=== PATIENT | male | born 1960 | race Caucasian/White ===

== ENCOUNTER → 2017-12-21 09:42 | Outpatient (CLI) | payer OTHER, SELFPAY ==
[2017-12-21 12:36] LABS: AST(SGOT) 26 U/L (15-37); Alanine Aminotransfer ALT/SGPT 53 U/L (16-61); Albumin, Serum 3.7 g/dL (3.2-5.0); Alkaline Phosphatase 107 U/L (45-117); Anion Gap 8 (5-15); BUN 14 mg/dL (7-18); BUN/Creat Ratio 11.3 RATIO (10-20); Calcium,Total 9.1 mg/dL (8.5-10.1); Chloride 102 mmol/L (98-107); Cholesterol 134 mg/dL (200); Creatinine, Serum 1.24 mg/dL (0.70-1.30); EST Glomerular Filtration Rate 64 mL/min (>60); Est Glom Filt Rate - Afr Amer 77 mL/min (>60); Globulin 3.7 g/dL (2.2-4.2); Glucose 168 mg/dL (74-106); High Density Lipoprotein 37 mg/dL; Protein, Total 7.4 g/dL (6.4-8.2); Sodium Level 139 mmol/L (136-145); Thyroid Stim Hormone (TSH) 0.61 uIU/mL (0.358-3.74); Triglycerides 146 mg/dL; Very Low Density Lipoprotein 29 mg/dL (5-40)
== END ==
PROVIDERS: Family Provider Family Medicine; PCP Family Medicine; Visit Provider Family Medicine
DX: E11.9 Type 2 diabetes mellitus without complications (principal)
CPT/HCPCS: 36415; 80053; 80061; 84403; 84443

== ENCOUNTER 2018-05-15 17:05 | Emergency (ER) | payer OTHER, SELFPAY ==
[2018-05-15 17:11] VITALS: BP 154/75; PULSE 80; RESP 16; TEMP 36.3; O2SAT 99; BMI 32.2
--- NOTE | 2018-05-15 17:21 | ED.VISSUMM ---
- ER Visit Summary Date of Service: 05/15/18 Chief Complaint: Foreign body left ring finger History of Present Illness: The patient is a 57 M who was nailing a toy house together when a nail came out of the side of the wood and went through his left ring finger. His last tetanus was about 11 years ago. He has pain in the distal left ring finger where the nail is located. Denies any other symptoms Physical Examination: Left hand exam reveals a nail through the distal finger below the nail bed. It exits on the radial side of the finger. It did contact the middle finger on the ulnar side but there is no injury or bleeding at that area. There is no bleeding overall. Test Results: Left hand x-ray reveals a foreign body near the distal phalanx of the left fourth finger. It does not appear to involve the bone Emergency Department Course and Treatment: The patient had a digital block using lidocaine. I then was able to remove the foreign body using hemostats. He tolerated this well. Minimal bleeding. He will keep area clean and dry. I will put him on Keflex for a couple of days because he is a diabetic. He will follow-up with his PCP. Treatment Plan: [] Disposition: Discharge Impression: Foreign body, left ring finger Foreign body removal by ED physician This note was generated with [employer] dictation software. It may contain incorrect words, spelling, and punctuation that were not noted in review of the chart prior to signing ED Disposition - Plan for ED Patient: Chief Complaint: Foreign Body Referrals: Brody Juárez MD [Primary Care Provider] -
--- NOTE | 2018-05-15 17:30 | RAD_ITS ---
STUDY: X-RAY - LEFT HAND REASON FOR EXAM: Male, 57 years old. Nail in finger. TECHNIQUE: 3 view(s) of the hand. COMPARISON: None. FINDINGS: Bones: There are no acute osseous abnormalities. Joints: The joints are unremarkable. Soft tissues: The soft tissues are unremarkable. Foreign body: There is a 2.3 cm linear radiopaque foreign body projected through the distal phalanx of fourth digit. RAD/Hand Min 3 Views IMPRESSION: Linear foreign body as described. Electronically Signed: Zaki Chakraborty MD at 18:17 EST , Service support ,
--- NOTE | 2018-05-15 17:49 | ED.DEP ---
ED Disposition - Plan for ED Patient: Disposition: Home or Assisted Living Chief Complaint: Foreign Body Instructions: ED Foreign Body Soft Tissue Removed Prescriptions: Cephalexin [Keflex] 500 mg PO Q12 #10 cap Referrals: Brody Juárez MD [Primary Care Provider] -
[2018-05-15] MEDS: Diphth,Pertuss(Acell),Tet Vac 0.5 ML Vial IM (17:57)
[2018-05-15] MEDS: Cephalexin 250 MG Capsule 500 MG PO (18:05)
== END 2018-05-15 18:28 | disposition home or self-care (01) ==
PROVIDERS: Emergency Provider Emergency Medicine; Family Provider Family Medicine; PCP Family Medicine
DX: S61.245A Puncture wound with foreign body of left ring finger without damage to nail, initial encounter (principal); W45.0XXA Nail entering through skin, initial encounter; Y93.89 Activity, other specified; Y92.9 Unspecified place or not applicable; I10 Essential (primary) hypertension; E11.9 Type 2 diabetes mellitus without complications; Z72.0 Tobacco use; Z79.84 Long term (current) use of oral hypoglycemic drugs; Z79.899 Other long term (current) drug therapy
CPT/HCPCS: 73130; 90471; 90715; 99284

== ENCOUNTER → 2018-06-21 11:23 | Outpatient (CLI) | payer OTHER, SELFPAY ==
[2018-06-21 14:11] LABS: ALB/GLOB Ratio 0.9 RATIO (0.9-2.4); AST(SGOT) 28 U/L (15-37); Alanine Aminotransfer ALT/SGPT 52 U/L (16-61); Albumin, Serum 3.6 g/dL (3.2-5.0); Alkaline Phosphatase 101 U/L (45-117); Anion Gap 7 (5-15); BUN 20 mg/dL (7-18); BUN/Creat Ratio 15.4 RATIO (10-20); Calcium,Total 8.9 mg/dL (8.5-10.1); Chloride 103 mmol/L (98-107); Cholesterol 146 mg/dL (200); EST Glomerular Filtration Rate 60 mL/min (>60); Est Glom Filt Rate - Afr Amer 73 mL/min (>60); Globulin 3.9 g/dL (2.2-4.2); Glucose 115 mg/dL (74-106); High Density Lipoprotein 31 mg/dL; Potassium 3.8 mmol/L (3.5-5.1); Protein, Total 7.5 g/dL (6.4-8.2); Sodium Level 137 mmol/L (136-145); Triglycerides 200 mg/dL; Very Low Density Lipoprotein 40 mg/dL (5-40)
== END ==
PROVIDERS: Family Provider Family Medicine; PCP Family Medicine; Visit Provider Family Medicine
DX: E78.5 Hyperlipidemia, unspecified (principal); E11.9 Type 2 diabetes mellitus without complications
CPT/HCPCS: 36415; 80053; 80061

== ENCOUNTER 2018-07-09 07:41 | Day surgery (SDC) | payer OTHER, SELFPAY ==
[2018-07-09 08:03] VITALS: BP 128/77; PULSE 88; RESP 16; TEMP 36.4; O2SAT 99; BMI 31.0
[2018-07-09 08:11] LABS: Bedside Glucose 177 mg/dL (70-110)
--- NOTE | 2018-07-09 08:42 | HP.PCM_ITS ---
History of Present Illness Date of Admission: 07/09/18 The patient is a 57 year old M who presents for screening colonoscopy. The patient reports his last colonoscopy was about 12 years ago. He is having no abdominal pain or blood in his stool. He has no family history of colon cancer. Past Medical/Surgical History - Planned Operation Planned Operative Procedure/s: CSCOPE Date of Operative Procedure: 07/09/18 Permit Signed: No S.O.S: No Is This Patient Having a Total Joint: No - Previous Hospitalizations/Surgeries HX Hospitalizations: No HX of Surgeries: VARICELECTOMY. CSCOPE Any Problems With Anesthesia: Yes - SLOW TO WAKEN AFTER CSCOPE You/Your Family Experience Fever (Hyperthermia) With Anes: No Cholinesterase deficiency: No - Cardiovascular Hx Chest Pain within Last 2 months: No Hx of Irregular Heartbeat and/or Afib: No Hx Heart Attack: No Hx Congestive Heart Failure: No Hx Rheumatic Fever: No Hx Hypertension: Yes - CONTROLLED WITH MEDS Hx Internal Defibrillator: No Hx Pacemaker: No Hx Cardiac Catheterization: No Hx Cardiac Surgery/Stents/Etc.: No Hx Stress Test: No HX Edema: No Hx Pain in Legs when Walking/Leg Cramps: Yes - CRAMPS OCC - Respiratory Chronic Cough: No HX of Shortness of Breath: No Hoarseness: No Hx Chronic Obstructive Pulmonary Disease (COPD): No Hx Asthma: No Hx Emphysema: No Hx Sleep Apnea: No Hx Oxygen Use at Home: No Hx Respiratory Tract Infection/Cold (presently): No Do You Snore Loudly (louder than talking or can be heard): Yes Do You Often Feel Tired/ Fatigued/ Sleepy Dring Daytime?: No Has Anyone Observed You Stop Breathing During Sleep?: Yes Result (for STOP score): Positive Hx Smoking: Yes - QUIT SMOKING YRS AGO/DAILY CHEWING TOBACCO Smoking Status: Current every day smoker - Gastrointestinal Hx Gastroesophageal Reflux: Yes Controlled With Meds: Yes Hx Gastrointestinal Disorders: No Hx Gastrointestinal Bleed: No Hx Ulcer: No Hx Hiatal Hernia: No Difficulty Chewing/Swallowing: No Recent Onset of Swallowing Problems: No Special diet followed at home: Yes - ADA Hx Unplanned Weight Loss of 20#: No HX Unplanned Weight Gain of 20#: No - Neurological Hx Seizures: No HX Syncope/Blackout Spells/Unconsciousness: Yes - VERTIGO Hx CVA/Stroke: No Hx Transient Ischemic Attacks (TIA): No Hx Multiple Sclerosis: No Hx Parkinson's Disease: No Hx Head/Neck Injury: No Hx Headaches: No Hx Back Injury/Pain: No Recent Onset of Speech Difficulty: No Restless Legs: No Does patient have nerve stimulator: No Patient instructed to have device shut off: No Rep notified?: No - Blood Disorder Hx Leukemia: No Bleeding Tendencies: No Hx Deep Vein Thrombosis: No Hx High Cholesterol: Yes - ON MED Blood Transmitted Disease: No Hx Hepatitis: No Hx Cirrhosis: No Hx Anemia: No Hx Blood Disorders: No - Genitourinary Hx Renal Disease: No - Musculoskeletal Hx Arthritis: No Hx Rheumatoid Arthritis: No Hx Gout: No Recent Onset of an Orthopedic Problem: No - Endocrine Hx Diabetes: Yes Insulin: No Thyroid Disease: No Hx Steroid Therapy: No - Psycho/Social Hx Substance Use: No Hx Alcohol Use: No Hx Anxiety: No Hx Depression: No Mental Illness: No Hx Dementia: No - Miscellaneous Hx Cancer: No Recent Exposure to Contagious Disease: No Active MRSA: No Hx of C-Diff: No Any Loose Teeth: No - UPPER DENTURE Allergies hydrocodone Allergy (Verified 07/02/18 09:22) Vomiting Penicillins [PCN] Allergy (Verified 07/02/18 09:22) Unknown tetracycline Allergy (Verified 07/02/18 09:22) Unknown - Discharge Is Pt Admitted From a [facility], or a Detention: No Who Could Help: After D/C, Where Do you Plan to Go: Return Home - Physical Exam General: Alert, Oriented x3 Lungs: Normal air movement Cardiovascular: Regular rate, Regular Rhythm Abdomen: Soft, Non Tender, Non-Distended Vital Signs Temp Pulse Resp BP Pulse Ox 97.5 F L 88 16 128/77 H 99 07/09/18 08:03 07/09/18 08:03 07/09/18 08:03 07/09/18 08:03 07/09/18 08:03 Oxygen Delivery Method Room Air Weight: 204 lb 2.369 oz Body Mass Index (BMI) 31.0 POC Glucose 07/09/18 08:00 POC Glucose 177 H Assessment/Plan 57-year-old male for screening colonoscopy I explained endoscopy in detail to the patient. I explained the risks including but not limited to stroke or heart attack with anesthesia, perforation of the GI tract, bleeding, infection. I explained that any of these could necessitate further emergency surgery. The patient understands and all questions were answered sufficiently. The patient wishes to proceed with procedure. Luciano Lombardi MD Pager: [facility] [address] [place] [address] [address] [place] [address] Office: Surgery Risks - Colonoscopy Risks Include but are not Limited To: Risks include but are not limited to: Bleeding, perforation requiring further surgery, inability to complete colonoscopy requiring barium enema.
--- NOTE | 2018-07-09 08:45 | COLBX_PTH ---
PATIENT: BHARTI RAMOS LOC: EN U#:[id number] AGE/SX: 57/M ROOM: RE07/09/[address]: Dr. Luciano Lombardi MD : 1960 BED: DIS: 07/09/2018 SPEC #: [id number] RECD: 07/09/18 09:28 STATUS: ANDREW YOEL #: [id number] ABIGAIL: 07/09/18 08:[address]: Luciano Lombardi DEPT: SURGICAL PATHOLOGY RECD BY: Gideon Mendoza ENTERED: 07/09/18 10:30 SP TYPE: COLON BX SPRING DR: Dr. James Juárez MD Tissues: Transverse colon Procedures: Surgery Specimen Level IV HEADER OPERATION: Colonoscopy (MAC) PRE-OP DIAGNOSIS: Screening TISSUE SUBMITTED: Transverse colon polyp MICROSCOPIC DIAGNOSIS Transverse colon polyp, biopsy: Fragments of tubular adenoma. AM:duke 07/12/18 MICROSCOPIC DESCRIPTION Slides are reviewed. GROSS DESCRIPTION Received in fixative is one container labeled with the patient's name and designated transverse colon polyp. The specimen consists of multiple irregular fragments of light infante soft tissue that in aggregate measure 0.5 x 0.2 x 0.1 cm. The specimen is totally submitted in one cassette. / AM:duke 07/09/18 TC:5 CPT: 13355
--- NOTE | 2018-07-09 09:06 | OP.ENDO_ITS ---
07/09/2018 Brody Juárez [address] [place] [address] Re : Colonoscopy procedure for Zaki Mcduffie Dear Dr. Juárez This procedure was performed on Monday, July 09, 2018. My impressions and recommendations are as follows: Impressions : - One polyp in the transverse colon, removed with a hot snare. Resected and retrieved. - The examination was otherwise normal on direct and retroflexion views. Recommendations : - Discharge patient to home. - Resume previous diet. - Continue present medications. - Await pathology results. - Repeat colonoscopy date to be determined after pending pathology results are reviewed for surveillance based on pathology results. My findings are described in the full procedure note, which is enclosed. If I can be of further assistance, please feel free to contact me at Doctor phone number(s): , Work: . Sincerely, Luciano Lombardi MD 07/09/2018 9:06:10 AM This report has been signed electronically.
[2018-07-09 09:07] VITALS: BP 128/77; BP 91/65; PULSE 78; RESP 18; TEMP 36.6; O2SAT 96
[2018-07-09 09:10] VITALS: BP 128/77; BP 94/64; PULSE 75; RESP 18; O2SAT 96
[2018-07-09 09:15] VITALS: BP 128/77; BP 90/61; PULSE 69; RESP 18; O2SAT 95
[2018-07-09 09:20] VITALS: BP 128/77; BP 99/69; PULSE 65; RESP 16; TEMP 36.6; O2SAT 98
[2018-07-09 11:00] VITALS: BP 128/77
== END 2018-07-09 11:00 | disposition home or self-care (01) ==
LOC: EN 07:43 → AC 07:44
PROVIDERS: Family Provider Family Medicine; PCP Family Medicine; Referring Provider Surgery; Visit Provider Surgery
PROC: 0DJD8ZZ Inspection of Lower Intestinal Tract, Via Natural or Artificial Opening Endoscopic (ICD-10-PCS; CPT 45378; principal; 2018-07-09 08:40)
DX: Z12.11 Encounter for screening for malignant neoplasm of colon (principal); D12.3 Benign neoplasm of transverse colon; I10 Essential (primary) hypertension; E11.9 Type 2 diabetes mellitus without complications; E78.00 Pure hypercholesterolemia, unspecified; F17.220 Nicotine dependence, chewing tobacco, uncomplicated; Z79.84 Long term (current) use of oral hypoglycemic drugs; Z79.899 Other long term (current) drug therapy
CPT/HCPCS: 45385; 82962; 88305; J7120

== ENCOUNTER → 2018-12-20 09:10 | Outpatient (CLI) | payer OTHER, SELFPAY ==
[2018-10-04 09:43] VITALS: BMI 30.4
[2018-12-20 11:38] LABS: AST(SGOT) 19 U/L (15-37); Alanine Aminotransfer ALT/SGPT 32 U/L (16-61); Albumin, Serum 3.6 g/dL (3.2-5.0); Alkaline Phosphatase 109 U/L (45-117); Anion Gap 9 (5-15); BUN 16 mg/dL (7-18); BUN/Creat Ratio 11.5 RATIO (10-20); Calcium,Total 8.9 mg/dL (8.5-10.1); Chloride 104 mmol/L (98-107); Cholesterol 163 mg/dL (200); Creatinine, Serum 1.39 mg/dL (0.70-1.30); EST Glomerular Filtration Rate 56 mL/min (>60); Est Glom Filt Rate - Afr Amer 67 mL/min (>60); Globulin 3.5 g/dL (2.2-4.2); Glucose 143 mg/dL (74-106); High Density Lipoprotein 35 mg/dL; Potassium 3.8 mmol/L (3.5-5.1); Protein, Total 7.1 g/dL (6.4-8.2); Sodium Level 139 mmol/L (136-145); Triglycerides 265 mg/dL; Very Low Density Lipoprotein 53 mg/dL (5-40)
== END ==
PROVIDERS: Family Provider Family Medicine; PCP Family Medicine; Referring Provider Family Medicine; Visit Provider Family Medicine
DX: E11.9 Type 2 diabetes mellitus without complications (principal)
CPT/HCPCS: 36415; 80053; 80061; 84403; 84443

== ENCOUNTER → 2019-12-15 08:19 | Outpatient (CLI) | payer OTHER, SELFPAY ==
[2018-10-04 09:43] VITALS: BMI 30.4
[2019-12-15 10:30] LABS: Vitamin B12 708 pg/mL (211-911)
[2019-12-15 10:40] LABS: AST(SGOT) 16 U/L (15-37); Alanine Aminotransfer ALT/SGPT 36 U/L (16-61); Albumin, Serum 3.7 g/dL (3.2-5.0); Alkaline Phosphatase 105 U/L (45-117); Anion Gap 10 (5-15); BUN 21 mg/dL (7-18); BUN/Creat Ratio 13.8 RATIO (10-20); Calcium,Total 8.7 mg/dL (8.5-10.1); Chloride 101 mmol/L (98-107); Creatinine, Serum 1.52 mg/dL (0.70-1.30); EST Glomerular Filtration Rate 50 mL/min (>60); Est Glom Filt Rate - Afr Amer 60 mL/min (>60); Globulin 3.7 g/dL (2.2-4.2); Glucose 174 mg/dL (74-106); Potassium 3.4 mmol/L (3.5-5.1); Protein, Total 7.4 g/dL (6.4-8.2); Sodium Level 138 mmol/L (136-145); Thyroid Stim Hormone (TSH) 0.91 uIU/mL (0.358-3.74)
== END ==
PROVIDERS: PCP Family Medicine; Referring Provider Family Medicine; Visit Provider Family Medicine
DX: E11.9 Type 2 diabetes mellitus without complications (principal)
CPT/HCPCS: 36415; 80053; 82607; 84403; 84443

== ENCOUNTER → 2020-03-28 09:04 | Outpatient (CLI) | payer OTHER, SELFPAY ==
[2018-10-04 09:43] VITALS: BMI 30.4
[2020-03-28 10:37] LABS: Anion Gap 7 (5-15); BUN 19 mg/dL (7-18); BUN/Creat Ratio 12.5 RATIO (10-20); Calcium,Total 9.3 mg/dL (8.5-10.1); Chloride 104 mmol/L (98-107); Creatinine, Serum 1.52 mg/dL (0.70-1.30); EST Glomerular Filtration Rate 50 mL/min (>60); Est Glom Filt Rate - Afr Amer 60 mL/min (>60); Glucose 143 mg/dL (74-106); Potassium 3.7 mmol/L (3.5-5.1); Sodium Level 138 mmol/L (136-145)
== END ==
PROVIDERS: PCP Family Medicine; Referring Provider Family Medicine; Visit Provider Family Medicine
DX: E11.9 Type 2 diabetes mellitus without complications (principal)
CPT/HCPCS: 36415; 80048

== ENCOUNTER → 2020-07-30 08:24 | Outpatient (CLI) | payer OTHER, SELFPAY ==
[2018-10-04 09:43] VITALS: BMI 30.4
[2020-07-30 10:46] LABS: Anion Gap 8 (5-15); BUN 14 mg/dL (7-18); BUN/Creat Ratio 10.4 RATIO (10-20); Calcium,Total 8.9 mg/dL (8.5-10.1); Chloride 106 mmol/L (98-107); Cholesterol 178 mg/dL (200); Creatinine, Serum 1.34 mg/dL (0.70-1.30); EST Glomerular Filtration Rate 58 mL/min (>60); Est Glom Filt Rate - Afr Amer 70 mL/min (>60); Glucose 144 mg/dL (74-106); High Density Lipoprotein 37 mg/dL; Potassium 3.8 mmol/L (3.5-5.1); Sodium Level 139 mmol/L (136-145); Triglycerides 215 mg/dL; Very Low Density Lipoprotein 43 mg/dL (5-40)
== END ==
PROVIDERS: PCP Family Medicine; Referring Provider Family Medicine; Visit Provider Family Medicine
DX: E11.9 Type 2 diabetes mellitus without complications (principal); Z83.2 Family history of diseases of the blood and blood-forming organs and certain disorders involving the immune mechanism
CPT/HCPCS: 36415; 80048; 80061; 81241

== ENCOUNTER → 2021-02-11 08:49 | Outpatient (CLI) | payer OTHER, SELFPAY ==
[2021-02-11 10:41] LABS: ALB/GLOB Ratio 0.9 RATIO (0.9-2.4); AST(SGOT) 13 U/L (15-37); Alanine Aminotransfer ALT/SGPT 21 U/L (16-61); Albumin, Serum 3.6 g/dL (3.2-5.0); Alkaline Phosphatase 129 U/L (45-117); Anion Gap 8 (5-15); BUN 16 mg/dL (7-18); Calcium,Total 9.3 mg/dL (8.5-10.1); Chloride 104 mmol/L (98-107); Cholesterol 148 mg/dL (200); Creatinine, Serum 1.45 mg/dL (0.70-1.30); EST Glomerular Filtration Rate 53 mL/min (>60); Est Glom Filt Rate - Afr Amer 64 mL/min (>60); Globulin 3.9 g/dL (2.2-4.2); Glucose 122 mg/dL (74-106); High Density Lipoprotein 35 mg/dL; Protein, Total 7.5 g/dL (6.4-8.2); Sodium Level 139 mmol/L (136-145); Thyroid Stim Hormone (TSH) 0.82 uIU/mL (0.358-3.74); Triglycerides 209 mg/dL; Very Low Density Lipoprotein 42 mg/dL (5-40)
[2021-02-11 11:44] LABS: Vitamin B12 917 pg/mL (211-911)
== END ==
PROVIDERS: PCP Family Medicine; Visit Provider Family Medicine
DX: E11.40 Type 2 diabetes mellitus with diabetic neuropathy, unspecified (principal)
CPT/HCPCS: 36415; 80053; 80061; 82607; 84403; 84443

== ENCOUNTER 2021-07-03 09:22 | Outpatient (CLI) | payer OTHER, SELFPAY ==
--- NOTE | 2021-07-03 09:28 | BI_ITS ---
MAMMOGRAPHY - BILATERAL DIAGNOSTIC REASON FOR EXAM: Male, 60 years old. Two-week history of palpable left retroareolar nodule with tenderness. PERTINENT HISTORY: Non-contributory. TECHNIQUE: Digital bilateral breast bety (3D mammographic acquisition) in the CC and MLO projections. 2-D mediolateral oblique (MLO) and craniocaudad (CC) views of both breasts were obtained. CAD: Full Field Digital Mammography with Computer Added Detection was performed. COMPARISON: None. Baseline examination. FINDINGS: Breast Composition: There are scattered areas of fibroglandular density. There are no dominant masses or suspicious calcifications. No other significant abnormalities are identified. BI/DIAG MAMM W/CAD, BILAT IMPRESSION: Negative diagnostic mammogram. With the patient''s history of a palpable lump in the left retroareolar region, correlation with ultrasound is recommended. ASSESSMENT CATEGORY: BIRADS Category 0: Incomplete. Need additional imaging evaluation. A letter regarding these results will be sent to the patient by the facility within 30 days. Approximately 10% of breast cancers are not detected by mammography. A normal mammogram should not delay biopsy of a clinically suspicious abnormality. Electronically Signed: Phoenix Nash MD at 10:43 EST ,
--- NOTE | 2021-07-03 09:30 | BI_ITS ---
STUDY: ULTRASOUND BREAST - LEFT REASON FOR EXAM: Male, 60 years old. Palpable left retroareolar nodule. TECHNIQUE: Axial and longitudinal images of the LEFT breast were performed with a high resolution ultrasound transducer. # OF IMAGES: 32 COMPARISON: Comparison is made with prior mammogram done earlier today. FINDINGS: LEFT Breast: The palpable abnormality corresponds to a 2 cm x 1.6 cm x 0.6 cm well-defined solid nodule of mixed echogenicity just deep to the skin surface. This most likely represents a lipoma. Tissue diagnosis is recommended. BI/Bilat Brst Chay Stand Alone IMPRESSION: The palpable abnormality corresponds to a 2 cm x 1.6 cm x 0.6 cm well-defined solid nodule of mixed echotexture just deep to the skin surface. This most likely represents a small lipoma. Tissue diagnosis is recommended. ASSESSMENT CATEGORY: BIRADS Category 4: Suspicious - Biopsy Should Be Considered. A letter regarding these results will be sent to the patient by the facility within 30 days. Electronically Signed: Phoenix Nash MD at 9:44 EST ,
== END 2021-07-03 23:59 | disposition home or self-care (01) ==
LOC: OPBI 09:24
PROVIDERS: PCP Family Medicine; Visit Provider Registered Nurse
DX: N63.20 Unspecified lump in the left breast, unspecified quadrant (principal); R92.2 Inconclusive mammogram
CPT/HCPCS: 76642; 77062; 77066; G0279

== ENCOUNTER → 2021-07-09 10:14 | Outpatient (CLI) | payer OTHER, SELFPAY ==
--- NOTE | 2021-07-09 | BRBX_PTH ---
PATIENT: BHARTI RAMOS LOC: TON U#:[id number] AGE/SX: 64/M ROOM: RE07/09/[address]: Dr. Luciano Lombardi MD : 1960 BED: DIS: SPEC #: [id number] RECD: 07/09/21 10:18 STATUS: ANDREW YOEL #: [id number] ABIGAIL: 07/09/21 00:[address]: Luciano Lombardi DEPT: SURGICAL PATHOLOGY RECD BY: Ravindra Guerra ENTERED: 07/09/21 10:19 SP TYPE: BREAST BX OTHR DR: Dr. James Juárez MD Tissues: Left breast, NOS Procedures: Surgery Specimen Level IV HEADER OPERATION: Excisional left breast biopsy PRE-OP DIAGNOSIS: Left breast mass TISSUE SUBMITTED: Left breast tissue MICROSCOPIC DIAGNOSIS Left breast lesion, excisional biopsy: Mature adipose tissue. See comment. AM:duke 07/10/2021 COMMENT Ductal epithelium is not represented in the biopsy. The lesion may represent a lipoma. Clinical correlation is suggested. MICROSCOPIC DESCRIPTION Slides are reviewed. GROSS DESCRIPTION Received in fixative is one container labeled with the patient's name and designated left breast lipoma. The specimen consists of an irregular piece of adipose tissue measuring 2 x 1.5 x 1 cm. The external surface is inked. Sections reveal yellow adipose cut surfaces without areas of hemorrhage, necrosis or cystic degeneration. The entire specimen is submitted in two cassettes. / SJ:rg 07/09/2021 TC:1 CPT: 32686
== END ==
PROVIDERS: PCP Family Medicine; Visit Provider Surgery
DX: N63.20 Unspecified lump in the left breast, unspecified quadrant (principal)
CPT/HCPCS: 88305

== ENCOUNTER → 2021-10-14 | Outpatient (CLI) | payer OTHER, SELFPAY ==
[2021-10-14 18:02] LABS: Anion Gap 4 (5-15); BUN 21 mg/dL (7-18); BUN/Creat Ratio 13.8 RATIO (10-20); Calcium,Total 8.9 mg/dL (8.5-10.1); Chloride 106 mmol/L (98-107); Creatinine, Serum 1.52 mg/dL (0.70-1.30); EST Glomerular Filtration Rate 50 mL/min (>60); Est Glom Filt Rate - Afr Amer 60 mL/min (>60); Glucose 141 mg/dL (74-106); Potassium 3.8 mmol/L (3.5-5.1); Sodium Level 138 mmol/L (136-145)
== END | disposition home or self-care (01) ==
LOC: MFPLAB 15:01
PROVIDERS: Nurse Practitioner Family; PCP Family Medicine; Visit Provider Family Medicine
DX: E11.59 Type 2 diabetes mellitus with other circulatory complications (principal)
CPT/HCPCS: 36415; 80048

== ENCOUNTER → 2022-04-14 | Outpatient (CLI) | payer OTHER, SELFPAY ==
[2022-04-14 10:40] LABS: ALB/GLOB Ratio 1.2 RATIO (0.9-2.4); AST(SGOT) 10 U/L (15-37); Alanine Aminotransfer ALT/SGPT 23 U/L (16-61); Albumin, Serum 3.8 g/dL (3.2-5.0); Alkaline Phosphatase 129 U/L (45-117); Anion Gap 10 (5-15); BUN 23 mg/dL (7-18); BUN/Creat Ratio 15.2 RATIO (10-20); Calcium,Total 9.5 mg/dL (8.5-10.1); Chloride 106 mmol/L (98-107); Cholesterol 172 mg/dL (200); Creatinine, Serum 1.51 mg/dL (0.70-1.30); EST Glomerular Filtration Rate 50 mL/min (>60); Est Glom Filt Rate - Afr Amer 60 mL/min (>60); Globulin 3.1 g/dL (2.2-4.2); Glucose 122 mg/dL (74-106); High Density Lipoprotein 39 mg/dL; PSA,Total - Annual Screen 8.15 ng/mL (0.00-4.00); Potassium 4.4 mmol/L (3.5-5.1); Protein, Total 6.9 g/dL (6.4-8.2); Sodium Level 140 mmol/L (136-145); Thyroid Stim Hormone (TSH) 1.22 uIU/mL (0.358-3.74); Triglycerides 170 mg/dL; Very Low Density Lipoprotein 34 mg/dL (5-40)
== END | disposition home or self-care (01) ==
LOC: MFPLAB 08:31
PROVIDERS: PCP Family Medicine; Visit Provider Family Medicine
DX: E11.9 Type 2 diabetes mellitus without complications (principal); Z12.5 Encounter for screening for malignant neoplasm of prostate
CPT/HCPCS: 36415; 80053; 80061; 84153; 84403; 84443; G0103

== ENCOUNTER → 2022-04-22 | Outpatient (CLI) | payer OTHER, SELFPAY ==
[2022-04-22 17:47] LABS: Bacteria 0 SEEN /hpf (None Seen); Red Blood Cells-Urine 0 SEEN /hpf (0-5)
[2022-04-22 18:17] LABS: Color, Urine Yellow (Yellow); Glucose, Dipstick Normal (Normal); Ketone-Dipstick 5 mg/dl (Negative); Leukocyte Esterase-Dipstick 25 /ul (Negative); Nitrite-Dipstick Negative (Negative); Occult Blood-Urine Negative /ul (Negative); Protein-Dipstick 500 mg/dl (Negative); Specific Gravity, Urine 1.025 (1.002-1.030); Urine Clarity Clear (Clear); Urine Urobilinogen 1 mg/dl (Normal)
[2022-04-22 18:23] LABS: Urine Bilirubin Dipstick 1 mg/dL (Negative)
[2022-04-22 19:17] LABS: Mucous, Urine 2+ /hpf (<or=2+)
[2022-04-22 19:25] LABS: Hyaline Cast 0-5 SEEN /lpf (0-5); Squamous Epithelial Cells - UA 0-5 SEEN /hpf (0-5); White Blood Cells 0-5 SEEN /hpf (0-5)
== END | disposition home or self-care (01) ==
PROVIDERS: PCP Family Medicine; Visit Provider Family Medicine
DX: R97.20 Elevated prostate specific antigen [PSA] (principal)
CPT/HCPCS: 81001; 87086

== ENCOUNTER → 2022-06-09 | Outpatient (CLI) | payer OTHER, SELFPAY ==
[2022-06-09 13:14] LABS: PSA,Total- Diagnostic 8.02 ng/mL (0.0-4.0)
== END | disposition home or self-care (01) ==
LOC: PAVLAB 11:59 → LAB 12:04
PROVIDERS: PCP Family Medicine; Referring Provider Registered Nurse; Visit Provider Registered Nurse
DX: R97.20 Elevated prostate specific antigen [PSA] (principal)
CPT/HCPCS: 36415; 84153

== ENCOUNTER → 2022-06-13 | Outpatient (CLI) | payer OTHER, SELFPAY ==
--- NOTE | 2022-06-13 07:46 | EKG12_ITS ---
Test Reason : PREOP Blood Pressure : / mmHG Vent. Rate : 067 BPM Atrial Rate : 067 BPM P-R Int : 166 ms QRS Dur : 086 ms QT Int : 380 ms P-R-T Axes : 076 051 058 degrees QTc Int : 401 ms Normal sinus rhythm Normal ECG Confirmed by NESS SWEET, ZEE ([id number]), book or script editor MEGAN REARDON ([id number]) on 06/16/2022 11:36:09 AM Referred By: Angus Levin Confirmed By:ZEE ARZOLA MD
[2022-06-13 07:59] LABS: Hematocrit 42.9 % (40-54); Hemoglobin 13.5 g/dL (13.0-16.5); Mean Corp Hgb Conc 31.5 g/dL (32-36); Mean Corpuscular Hgb 27.1 pg (27.0-32.0); Mean Platelet Vol. 10.1 fl (6.2-12.0); Platelet Count 311 K/mm3 (150-450); RBC Distribution Width CV 13.1 % (11.6-14.6); RBC Distribution Width SD 40.2 fl (35.1-43.9); Red Blood Count 4.99 M/mm3 (4.6-6.2); White Blood Count 6.7 K/mm3 (4.4-11.0)
[2022-06-13 08:27] LABS: Anion Gap 5 (5-15); BUN 19 mg/dL (7-18); BUN/Creat Ratio 12.2 RATIO (10-20); Calcium,Total 9.3 mg/dL (8.5-10.1); Chloride 105 mmol/L (98-107); Creatinine, Serum 1.56 mg/dL (0.70-1.30); EST Glomerular Filtration Rate 48 mL/min (>60); Est Glom Filt Rate - Afr Amer 58 mL/min (>60); Glucose 144 mg/dL (74-106); Sodium Level 140 mmol/L (136-145)
== END | disposition home or self-care (01) ==
LOC: PSN 07:38
PROVIDERS: PCP Family Medicine; Referring Provider Urology; Visit Provider Urology
DX: Z01.810 Encounter for preprocedural cardiovascular examination (principal)
CPT/HCPCS: 36415; 80048; 85027; 93005

== ENCOUNTER → 2022-06-20 | Outpatient (CLI) | payer OTHER, SELFPAY ==
--- NOTE | 2022-06-20 10:30 | PROSBIL_PTH ---
PATIENT: BHARTI RAMOS LOC: TON U#:[id number] AGE/SX: 61/M ROOM: RE06/20/[address]: Dr. Angus Levin MD : 1960 BED: DIS: 06/20/2022 SPEC #: [id number] RECD: 06/20/22 15:09 STATUS: ANDREW YOEL #: [id number] ABIGAIL: 06/20/22 10:[address]: Angus Levin DEPT: SURGICAL PATHOLOGY RECD BY: Tiffanie Coon ENTERED: 06/23/22 08:46 SP TYPE: PROST BX SPRING DR: Dr. James Juráez MD [facility] Tissues: A - PROSTATE RIGHT B - PROSTATE RIGHT C - PROSTATE RIGHT D - PROSTATE LEFT E - PROSTATE LEFT F - PROSTATE LEFT Procedures: PROSTATE BX HEADER OPERATION: Ultrasound-guided prostate biopsy PRE-OP DIAGNOSIS: Elevated PSA TISSUE SUBMITTED: A - Right base, B - Right mid, C - Right apex, D - Left base, E - Left mid, F - Left apex MICROSCOPIC DIAGNOSIS A. Right prostate, base, core biopsy: Prostatic tissue, negative for malignancy. B. Right prostate, mid, core biopsy: Prostatic tissue, negative for malignancy. C. Right prostate, apex, core biopsy: Prostatic tissue, negative for malignancy. D. Left prostate, base, core biopsy: Prostatic tissue, negative for malignancy. Focal mild chronic inflammation. E. Left prostate, mid, core biopsy: Prostatic tissue, negative for malignancy. F. Left prostate, apex, core biopsy: Prostatic tissue, negative for malignancy. SJ:duke 06/24/2022 MICROSCOPIC DESCRIPTION Slides are reviewed. GROSS DESCRIPTION A - Received is one container designated prostate, right base. The specimen consists of two elongated fragments of light infante-white soft tissue measuring 1.0 and 1.2 cm in length and 0.1 cm in diameter. The specimen is totally submitted in one cassette. B - Received is one container designated prostate, right mid. The specimen consists of two elongated fragments of light infante-white soft tissue each measuring 1.0 cm in length and 0.1 cm in diameter. The specimen is totally submitted in one cassette. C - Received is one container designated prostate, right apex. The specimen consists of two elongated fragments of light infante-white soft tissue each measuring 1.0 cm in length and 0.1 cm in diameter. The specimen is totally submitted in one cassette. D - Received is one container designated prostate, left base. The specimen consists of two elongated fragments of light infante-white soft tissue each measuring 1.0 cm in length and 0.1 cm in diameter. The specimen is totally submitted in one cassette. E - Received is one container designated prostate, left mid. The specimen consists of three elongated fragments of light infante-white soft tissue each measuring 0.5 cm in length and 0.1 cm in diameter. The specimen is totally submitted in one cassette. F - Received is one container designated prostate, left apex. The specimen consists of two elongated fragments of light infante-white soft tissue each measuring 0.5 cm in length and 0.1 cm in diameter. The specimen is totally submitted in one cassette. / SJ:rg 06/23/2022 TC:3 CPT: 99423 x6
== END | disposition home or self-care (01) ==
LOC: LABSPEC 15:27
PROVIDERS: PCP Family Medicine; Referring Provider Urology; Visit Provider Urology
DX: R97.20 Elevated prostate specific antigen [PSA] (principal)
CPT/HCPCS: 88305; G0416

== ENCOUNTER → 2023-01-19 | Outpatient (CLI) | payer OTHER, SELFPAY ==
[2023-01-19 09:05] LABS: PSA,Total- Diagnostic 9.19 ng/mL (0.0-4.0)
== END | disposition home or self-care (01) ==
LOC: PAVLAB 08:34
PROVIDERS: PCP Family Medicine; Referring Provider Registered Nurse; Visit Provider Registered Nurse
DX: R97.20 Elevated prostate specific antigen [PSA] (principal)
CPT/HCPCS: 36415; 84153

== ENCOUNTER → 2023-01-27 | Outpatient (CLI) | payer OTHER, SELFPAY ==
--- NOTE | 2023-01-27 07:50 | RAD_ITS ---
HISTORY: History of metal to the high. Pre-MRI. TECHNIQUE: 2 views of the orbits. Comparison none. FINDINGS: No metallic foreign body identified in the orbits. Metal dental amalgam noted. No large air-fluid levels in the paranasal sinuses. RAD/Orbits for Foreign Body IMPRESSION: No metallic foreign body in the orbits. Electronically Signed: Julisa Maldonado MD at 8:16 EDT ,
--- NOTE | 2023-01-27 08:13 | MRI_ITS ---
PROSTATE MRI HISTORY/INDICATION: Elevated PSA TECHNIQUE: Multiplanar, multisequence imaging of the pelvis in accordance with PIRADS recommendations before and after intravenous administration of 19 mL clariscan on a 1.5 TE platform using external phased array coil. Dedicated 3 plane small field of view T2 FSE, axial diffusion-weighted imaging with width B values 50-800 s/mm2 and calculated t=9629 s/mm2 and ADC map; and axial 3-D dynamic contrast enhanced T1 weighted images with temporal resolution in 3 mm slice thickness in addition to full pelvis postcontrast T1-weighted imaging. COMPARISON:None FINDINGS: Size: 3.9 x 3.9 x 3.9 (Lx W x H) cm for 31.5 cubic cm. Quality: Excellent Hemorrhage: Not present Peripheral zone: Homogenous high signal. Focal finding as below. Transition zone: Moderate heterogeneity consistent with prostatic hyperplasia. Lesion #1: Location: Left apical peripheral zone anterior on series 8 image 18, axial T2 Size: 0.6 x 0.9 cm T2: homogeneous, moderately hypointense without demonstrable extraprostatic extension, sequence category 4/5 DWI: focal markedly hyperintense on high b-value DWI (image 138 series 6) and markedly hypointense on ADC (image 15 series 601) without demonstrable extraprostatic extension, sequence category 4/5 DCE: focal early enhancement, positive Prostate margin: Smooth Lesion overall PI-RADS: 4/5 Neurovascular bundles: Not involved Seminal vesicles: not involved Lymph nodes: Small bilateral iliac chain lymph nodes measure up to 6.4 x 3.7 mm. No dominant vinh mass. Bones: no osseous metastases suggested Other pelvic organs: normal Moderate-sized bilateral fat-containing hernias. MRI/Pelvis W/WO Contrast IMPRESSION: 1. PI-RADS 4 - High (clinically significant cancer is likely to be present). PI?RADSR v2.1 Assessment Categories PI-RADS 1 ? Very low (clinically significant cancer is highly unlikely to be present) PI-RADS 2 ? Low (clinically significant cancer is unlikely to be present) PI-RADS 3 ? Intermediate (the presence of clinically significant cancer is equivocal) PI-RADS 4 ? High (clinically significant cancer is likely to be present) PI-RADS 5 ? Very high (clinically significant cancer is highly likely to be present) Electronically Signed: Rigoberto Vega MD (Brooks) at 16:41 EDT Reading Location ID and State: [facility] / [place] , Service support ,
[2023-01-27 08:37] LABS: CREATININE FINGERSTICK 1.6 mg/dL (0.70-1.30)
== END | disposition home or self-care (01) ==
PROVIDERS: PCP Internal Medicine; Referring Provider Urology; Visit Provider Urology
DX: R97.20 Elevated prostate specific antigen [PSA] (principal)
CPT/HCPCS: 70030; 72197; A9575

== ENCOUNTER → 2023-03-02 | Outpatient (CLI) | payer OTHER, SELFPAY ==
--- NOTE | 2023-03-02 | IMM_PTH ---
PATIENT: BHARTI RAMOS LOC: TON U#:[id number] AGE/SX: 62/M ROOM: RE03/02/[address]: Dr. Angus Levin MD : 1960 BED: DIS: 03/02/2023 SPEC #: [id number] RECD: 03/04/23 14:11 STATUS: ANDREW REQ #: [id number] ABIGAIL: 03/02/23 00:[address]: Angus Levin DEPT: IMMUNOHISTOCHEMISTRY RECD BY: Juli Bonner ENTERED: 03/04/23 14:11 SP TYPE: IMMUNO OTHR DR: Dr. Keturah Garvey MD Tissues: A - PROSTATE RIGHT Procedures: P40 (add) 34BE12 (initial) PHYSICIAN & INSTITUTION [place] [id number] SPECIMEN INFORMATION: Tissue Source: A - Right prostate, apex Clinical Info: Elevated PSA Specimen Number: [id number] CPT code: 49601, 52867 METHODOLOGY: Deparaffinized sections of prefer/formalin-fixed tissue or PAP/DQ stained slides are incubated with monoclonal/polyclonal antibodies/oligonucleotide probes. Localization is made via biotin free immunoperoxidase method. Appropriate controls are performed and reacted as expected. Results on target cell population are indicated in the following table: RESULTS: ANTIBODY / CLONE RESULT Block A P40 (BC28) negative 34BE12 (34BE12) negative These tests were developed and their performance characteristics determined by [facility]. They may not have been cleared or approved by the U.S. Food and Drug Administration. The FDA has determined that such clearance or approval is not necessary. The above immunohistochemical/dualISH markers are ordered and reviewed by the Pathologist. INTERPRETATION: A. Right prostate, apex, core biopsy: Adenocarcinoma. SHITAL:duke 03/05/2023
--- NOTE | 2023-03-02 | PROSBIL_PTH ---
PATIENT: BHARTI RAMOS LOC: [place] U#:[id number] AGE/SX: 62/M ROOM: RE03/02/[address]: Dr. Angus Levin MD : 1960 BED: DIS: 03/02/2023 SPEC #: [id number] RECD: 03/02/23 08:00 STATUS: ANDREW YOEL #: [id number] ABIGAIL: 03/02/23 00:[address]: Angus Levin DEPT: SURGICAL PATHOLOGY RECD BY: Radhika Jaramillo ENTERED: 03/03/23 08:58 SP TYPE: PROST BX SPRING DR: Dr. Keturah Garvey MD Tissues: A - PROSTATE RIGHT B - PROSTATE RIGHT C - PROSTATE RIGHT D - PROSTATE LEFT E - PROSTATE LEFT F - PROSTATE LEFT Procedures: PROSTATE BX HEADER OPERATION: Prostate biopsy PRE-OP DIAGNOSIS: Elevated PSA TISSUE SUBMITTED: A - Right apex, B - Right mid, C - Right base, D - Left apex, E - Left mid, F - Left base MICROSCOPIC DIAGNOSIS A. Right prostate, apex, core biopsy: Prostatic adenocarcinoma. Davis grade: 3+3=6 Number of cores involved: 1/2 Proportion of tissue involved: ~5% Perineural invasion: Not identified. Greatest tumor length: 0.3 cm Focal acute and chronic inflammation. See comment. B. Right prostate, mid, core biopsy: Prostatic tissue, negative for malignancy. Focal mild and acute chronic inflammation. C. Right prostate, base, core biopsy: Prostatic tissue, negative for malignancy. D. Left prostate, apex, core biopsy: Prostatic adenocarcinoma. Davis grade: 3+3=6 Number of cores involved: 3/3 Proportion of tissue involved: ~25% Perineural invasion: Not identified. Greatest tumor length: 0.5 cm Focal acute and chronic inflammation. E. Left prostate, mid, core biopsy: Prostatic adenocarcinoma. Simpson grade: 3+3=6 Number of cores involved: 1/3 Proportion of tissue involved: ~20% Perineural invasion: Not identified. Greatest tumor length: 0.5 cm F. Left prostate, base, core biopsy: Prostatic tissue, negative for malignancy. Focal basal cell hyperplasia. SJ:duke 03/04/2023 COMMENT A. Immunohistochemistry ([id number]) supports the above diagnosis. Please make reference to previous specimen ([id number]) right prostate, base, mid and apex and left prostate, base, mid and apex with diagnosis of negative for malignancy. The slides are reviewed again. Case has been reviewed in consultation with Dr. Crowder who concurs with the above diagnosis. IDC:AM MICROSCOPIC DESCRIPTION Slides are reviewed. GROSS DESCRIPTION A - Received is one container designated prostate, right apex. The specimen consists of two elongated fragments of light infante-white soft tissue measuring 1.7 and 2.0 cm in length and 0.1 cm in diameter. The specimen is totally submitted in one cassette. B - Received is one container designated prostate, right mid. The specimen consists of two elongated fragments of light infante-white soft tissue measuring 1.7 and 1.8 cm in length and 0.1 cm in diameter. The specimen is totally submitted in one cassette. C - Received is one container designated prostate, right base. The specimen consists of two elongated fragments of light infante-white soft tissue measuring 1.1 and 1.5 cm in length and 0.1 cm in diameter. The specimen is totally submitted in one cassette. D - Received is one container designated prostate, left apex. The specimen consists of two elongated fragments of light infante-white soft tissue measuring 1.6 and 1.8 cm in length and 0.1 cm in diameter. The specimen is totally submitted in one cassette. E - Received is one container designated prostate, left mid. The specimen consists of three elongated fragments of light infante-white soft tissue measuring 0.7 to 1.3 cm in length and 0.1 cm in diameter. The specimen is totally submitted in one cassette. F - Received is one container designated prostate, left base. The specimen consists of two elongated fragments of light infante-white soft tissue each measuring 1.5 cm in length and 0.1 cm in diameter. The specimen is totally submitted in one cassette. / SJ:rg 03/03/2023 TC:0 [facility]: [id number] [id number]
== END | disposition home or self-care (01) ==
LOC: LABSPEC 16:25
PROVIDERS: PCP Internal Medicine; Referring Provider Urology; Visit Provider Urology
DX: C61 Malignant neoplasm of prostate (principal)
CPT/HCPCS: 88305; 88341; 88342; G0416

== ENCOUNTER 2023-04-29 07:36 | Inpatient (IN) | payer OTHER, SELFPAY ==
--- NOTE | 2023-04-20 07:54 | EKG12_ITS ---
Test Reason : PRE OP Blood Pressure : / mmHG Vent. Rate : 083 BPM Atrial Rate : 083 BPM P-R Int : 160 ms QRS Dur : 088 ms QT Int : 366 ms P-R-T Axes : 051 031 052 degrees QTc Int : 430 ms Normal sinus rhythm Normal ECG Confirmed by NESS SWEET, ZEE ([id number]), primer expeditor and drier MEGAN REARDON ([id number]) on 04/20/2023 2:32:55 PM Referred By: Angus Levin Confirmed By:ZEE ARZOLA MD
[2023-04-20 09:17] LABS: Partial Thromboplast Time 26.1 Seconds (24.1-36.2)
[2023-04-20 09:27] LABS: Hematocrit 43.9 % (40-54); Hemoglobin 13.5 g/dL (13.0-16.5); Mean Corp Hgb Conc 30.8 g/dL (32-36); Mean Corpuscular Hgb 25.8 pg (27.0-32.0); Mean Corpuscular Volume 83.9 fL (80-94); Mean Platelet Vol. 10.2 fl (6.2-12.0); Platelet Count 329 K/mm3 (150-450); RBC Distribution Width CV 13.7 % (11.6-14.6); Red Blood Count 5.23 M/mm3 (4.6-6.2); White Blood Count 6.8 K/mm3 (4.4-11.0)
[2023-04-20 10:10] LABS: AST(SGOT) 14 U/L (15-37); Alanine Aminotransfer ALT/SGPT 15 U/L (16-61); Albumin, Serum 3.6 g/dL (3.2-5.0); Alkaline Phosphatase 128 U/L (45-117); Anion Gap 7 (5-15); BUN 19 mg/dL (7-18); BUN/Creat Ratio 11.4 RATIO (10-20); Bilirubin, Direct 0.08 mg/dL (0.00-0.30); Calcium,Total 8.6 mg/dL (8.5-10.1); Chloride 106 mmol/L (98-107); Creatinine, Serum 1.66 mg/dL (0.70-1.30); EST Glomerular Filtration Rate 45 mL/min (>60); Est Glom Filt Rate - Afr Amer 54 mL/min (>60); Globulin 3.6 g/dL (2.2-4.2); Glucose 122 mg/dL (74-106); Protein, Total 7.2 g/dL (6.4-8.2); Sodium Level 139 mmol/L (136-145)
[2023-04-20 14:23] LABS: Hemoglobin A1c 6.4 % (3.8-5.6)
[2023-04-29] VITALS (17 sets, daily range): BP systolic 101–168; BP diastolic 42–77; PULSE 84–104; RESP 16–20; TEMP 36.6–37.7; O2SAT 91–100; BMI 29.7
[2023-04-29] MEDS: Lactated Ringers 1,000 ML 15 ML IV ×2 (06:49→12:01)
[2023-04-29] MEDS: Cefazolin 2 GM in 0.9% Normal Saline (100mL Bag) 100 ML IV (07:30)
--- NOTE | 2023-04-29 07:30 | PROST_PTH ---
PATHOLOGY RESULTS PATIENT: BHARTI RAMOS LOC: MS3 U#:[id number] AGE/SX: 62/M ROOM: [facility] [place] RE04/29/[address]: Dr. Angus Levin MD : 1960 BED: 1 DIS: 05/01/2023 SPEC #: [id number] RECD: 04/30/23 07:32 STATUS: ANDREW DIALLO #: [id number] ABIGAIL: 04/29/23 07:[address]: Angus Levin DEPT: SURGICAL PATHOLOGY RECD BY: Radhika Jaramillo ENTERED: 04/30/23 07:33 SP TYPE: PROSTATE OTHR DR: Dr. Keturah Garvey MD Tissues: Prostate, NOS Lymph node of pelvis, NOS Lymph node of pelvis, NOS Procedures: Surgery Specimen Level V Surgery Specimen Level HEADER OPERATION: Lap robotic radical prostatectomy and bilateral pelvic lymph node PRE-OP DIAGNOSIS: Prostate cancer TISSUE SUBMITTED: A - Left pelvic lymph node, B - Right pelvic lymph node, C - Prostate MICROSCOPIC DIAGNOSIS A. Left pelvic lymph node, biopsy: One out of one lymph node negative for carcinoma. B. Right pelvic lymph node, biopsy: One out of one lymph node negative for carcinoma. C. Prostate, radical prostatectomy: Adenocarcinoma. See cancer synoptic report below. AM:duke 05/05/2023 COMMENT PROSTATE CANCER (RADICAL) SUMMARY: Procedure: Radical Prostatectomy Prostate Size: Weight: 36.5 gm Size: 4.0 x 4.0 x 3.0 cm Histologic Type: Adenocarcinoma Histologic Grade: 7 (3+4) Percent of Pattern 4: 20% Percent of Pattern 5: 0 Intraductal Carcinoma: Not identified Tumor Quantitation (from glass slides): 2.6 x 1.4 x 0.9 cm Extraprostatic Extension: Not identified Urinary Bladder Neck Invasion: Not identified. Seminal Vesicle Invasion: Not identified Lymphvascular Invasion: Not identified Perineural Invasion: Present, focal Margins: Free of carcinoma Regional Lymph Nodes: Number of lymph nodes involved by carcinoma: 0 Total number of lymph nodes examined: 2 See specimens A & B. Treatment Effect: Unknown Additional Pathologic Findings: Focal chronic inflammation and benign hyperplasia. Clinical History: Reference is made to the patient's right and left prostate, biopsies ([id number]) in which [place] grade 6 (3+3) adenocarcinoma was identified. PATHOLOGIC STAGE: T2 N0 Mx The above summary is in compliance with [employer] (CAP) Cancer Protocols Checklist and [place] Joint Committee on Cancer (AJCC), Staging Manual, 8th Ed. Case has been reviewed in consultation with Dr. Roberts who concurs with the above diagnosis. IDC:SJ MICROSCOPIC DESCRIPTION Slides are reviewed. GROSS DESCRIPTION A - Received in fixative is one container labeled with the patient's name and designated left pelvic lymph node. The specimen consists of a piece of adipose tissue containing a nodule measuring 1.0 x 0.6 x 0.5 cm. The specimen is bisected and submitted entirely in one cassette. B - Received in fixative is one container labeled with the patient's name and designated right pelvic lymph node. The specimen consists of a piece of adipose tissue containing a nodule measuring 2.2 x 1.7 x 0.4 cm. The specimen is bisected and submitted entirely in one cassette. C - Received in fixative is one container labeled with the patient's name and designated prostate. The specimen consists of a radical prostatectomy specimen consisting of prostate and bilateral seminal vesicles and vas deferens. The specimen weighs 46.5 gm. The prostate measures 4.0 cm transversely, 3.0 cm anterior-posteriorly and 4.0 cm craniocaudally. The right seminal vesicle measures 2.5 x 1.5 x 1.0 cm and right vas deferens measures 3.0 cm in length and 0.5 cm in diameter. The left seminal vesicle measures 3.0 x 1.5 x 1.0 cm and the left vas deferens measures 3.0 cm in length and 0.5 cm in diameter. The prostate is inked as follows: anterior surface - yellow, posterior surface - black, right lateral surface - blue, left lateral surface - green. The bilateral seminal vesicles and vas deferens are inked as follows: Posterior surface bilateral seminal vesicle and vas deferens - black, anterior surface right seminal vesicle and vas deferens - blue and anterior left seminal vesicle and vas deferens - green. Sections do not reveal any obvious mass lesion. Motion Picture Projectionist sections are submitted in 20 cassettes as follows: 1??right seminal vesicle and vas deferens, 2 - left seminal vesicle and vas deferens, 3 - apical (urethral) margin, enface, 4 & 5 - bladder neck and prostate base margin, enface, 6-9 - apical portion prostate, 1013 - middle portion prostate, 14-20 - basal portion prostate. More than 95% of the prostate is submitted. Sections are submitted after additional fixation. / SJ:duke 04/30/2023 TC:0 CPT: 08006 x2, 51991
[2023-04-29 07:36] LABS: Bedside Glucose 117 mg/dL (74-106)
--- NOTE | 2023-04-29 07:36 | HP.PCM_ITS ---
HPI - General General Date of Service: 04/29/23 Chief Complaint: Prostate cancer HPI Narrative BHARTI RAMOS, is a 62 M who presents For radical prostatectomy history of prostate cancer [facility] Medical History (Updated 04/29/23 @ 07:[address] Angus Levin MD) Arthritis Cancer Chews tobacco Diabetes Excessive bleeding Former smoker GERD (gastroesophageal reflux disease) High cholesterol History of edema History of renal disease Hypertension Kidney disease, chronic, stage III (GFR 30-59 ml/min) Left breast mass Left knee pain Neuropathy Obesity Osteoarthritis of left knee Vision problem Wears dentures Wears glasses Home Medications amlodipine 10 mg tablet 10 mg PO DAILY #90 tabs 01/19/23 [Rx Last Taken 04/29/23] aspirin 81 mg tablet,delayed release (Adult Low Dose Aspirin) 81 mg PO DAILY 01/19/23 [History Last Taken 04/13/23] empagliflozin 25 mg tablet (Jardiance) 25 mg PO DAILY #90 tabs 01/19/23 [Rx Last Taken 04/28/23] gabapentin 300 mg capsule 300 mg PO QHS 01/19/23 [History Last Taken 04/28/23] hydrochlorothiazide 25 mg tablet 12.5 mg (1/2 x 25 mg) PO DAILY #90 tabs 01/19/23 [Rx Last Taken 04/28/23] losartan 100 mg tablet 100 mg PO DAILY #90 tabs 01/19/23 [Rx Last Taken 04/29/23] metformin 1,000 mg tablet 1,000 mg PO BID #180 tabs 01/19/23 [Rx Last Taken 04/28/23] multivitamin 1 tab PO QHS 01/19/23 [History Last Taken 04/28/23] omeprazole 20 mg capsule,delayed release 20 mg PO DAILY #90 caps 01/19/23 [Rx Last Taken 04/29/23] sitagliptin phosphate 100 mg tablet 100 mg PO DAILY #90 tabs 01/19/23 [Rx Last Taken 04/28/23] pravastatin 20 mg tablet 20 mg PO QHS 04/13/23 [History Last Taken 04/28/23] ciprofloxacin HCl 500 mg tablet 500 mg PO BID #14 tabs 04/29/23 [Rx Last Taken Unknown] docusate sodium 100 mg capsule (Colace) 100 mg PO BID #20 caps 04/29/23 [Rx Last Taken Unknown] oxycodone 5 mg tablet 5 mg PO Q6H PRN pain 7 days #14 tabs 04/29/23 [Rx Last Taken Unknown] Allergy/AdvReac Type Severity Reaction Status Date / Time canagliflozin [From Invokana] Allergy Mild Other Verified 04/29/23 06:33 hyoscyamine Allergy Mild Other Verified 04/29/23 06:33 lisinopril Allergy Mild Other Verified 04/29/23 06:33 simvastatin Allergy Mild Other Verified 04/29/23 06:33 Penicillins [PCN] Allergy Unknown Verified 04/29/23 06:33 tetracycline Allergy Unknown Verified 04/29/23 06:33 Family History (Updated 01/19/23 @ 10:[address] Keturah Garvey MD) Sister Asthma Hypertension Tremor Mother Diabetes Parkinson disease Sister Diabetes Hypertension Father Heart disease Surgical History (Updated 04/13/23 @ 15:09 by Lori Valencia) H/O breast biopsy History of colonoscopy History of tonsillectomy Social History (Updated 01/19/23 @ 10:[address] Keturah Garvey MD) household members: spouse current occupational status: employed current occupation: [employer] Smoking Status: Former smoker quit date: 05/04/92 pack-years: 15 Smokeless tobacco user: chewing tobacco Electronic Cigarette Use: not used alcohol intake: never substance use type: does not use what type of physical activity do you participate in: none do you feel safe at home: Yes Vital Signs Vital Signs Vital Signs: 04/29/23 06:35 04/29/23 06:35 Temperature 98.7 F Temperature Source Temporal Pulse Rate 84 Respiratory Rate 20 H Respiratory Pattern Normal Blood Pressure 142/70 H Blood Pressure Mean 94 Blood Pressure Source Monitor Blood Pressure Position Semi-Fowlers Blood Pressure Location Left Arm Pulse Ox 95 Oxygen Delivery Method Room Air Weight Weight: 88.9 kg Body Mass Index (BMI) 29.7 Results Lab / Micro Data 04/20/23 08:07 04/20/23 08:07 Labs: Laboratory Results - last 24 hr 04/29/23 06:31: POC Glucose 117 H
--- NOTE | 2023-04-29 07:37 | PCM.DC ---
Discharge Instructions Diet Discharge Diet: Light diet - advance as tolerated and Soft diet Activity Discharge Activity: Return to Normal Activity and May Not Drive (while having pain.) May shower in (days): 1 Dressing / Incision Cleanse incision/area with: Soap & Water Catheter: [place] to leg bag and [place] to large bag Drain: [place] Follow Up Care Please Follow Up With: Angus Levin MD When: Call for appointment 2 weeks Test Results: Test results from this visit will be discussed in further detail at your follow-up appointment, if applicable. Discharge Plan Admission Primary Reason for Your Visit: Robotic Prostatectomy Attending Provider: Angus Levin Primary Care Provider: Keturah Garvey Discharge Orders/Prescriptions Prescriptions: New docusate sodium [Colace] 100 mg capsule 100 mg PO BID Qty: 20 0RF oxycodone 5 mg tablet 5 mg PO Q6H PRN (Reason: pain) 7 Days Qty: 14 0RF ciprofloxacin HCl 500 mg tablet 500 mg PO BID Qty: 14 0RF No Action gabapentin 300 mg capsule 300 mg PO QHS metformin 1,000 mg tablet 1,000 mg PO BID Qty: 180 3RF sitagliptin phosphate 100 mg tablet 100 mg PO DAILY Qty: 90 3RF Jardiance 25 mg tablet 25 mg PO DAILY Qty: 90 3RF multivitamin Tablet 1 tab PO QHS aspirin [Adult Low Dose Aspirin] 81 mg tablet,delayed release (DR/EC) 81 mg PO DAILY Patient Comments: WILL STOP 04/22 FOR SURGERY ON 04/[address] LEVIN amlodipine 10 mg tablet 10 mg PO DAILY Qty: 90 1RF hydrochlorothiazide 25 mg tablet 12.5 mg PO DAILY Qty: 90 1RF losartan 100 mg tablet 100 mg PO DAILY Qty: 90 1RF omeprazole 20 mg capsule,delayed release(DR/EC) 20 mg PO DAILY Qty: 90 1RF pravastatin 20 mg tablet 20 mg PO QHS Other Ambulatory Orders: 12 Lead EKG (Routine) Timeframe: [id number] Location: None Selected Ordered By: Dr. Bernabe Sharp Referrals / Follow Up: Keturah Garvey MD [Primary Care Provider] - Angus Levin MD [Med Staff - Active Staff] - Disposition Disposition (needs filled in before D/C Order can be placed): Home, Self Care
[2023-04-29] MEDS: Bupivacaine Mpf 0.5% 30 ML VIAL (11:40)
--- NOTE | 2023-04-29 11:41 | OP.PCM_ITS ---
Report of Operation Date of Procedure: 04/29/23 Pre-Operative Diagnosis: Prostate cancer Post-Operative Diagnosis: The same Surgery/Procedure Performed:: Laparoscopic robotic assisted radical prostatectomy with right nerve sparing, left wide dissection, bilateral pelvic lymph node dissection Description of Surgical Findings:: Patient was taken back to the operating room at this with induction of anesthesia he was placed in dorsolithotomy position.The penis and testicles were prepped and draped in the lower abdomen were draped in the usual sterile fashion I then placed the Veress needle above the umbilicus it went very easily through the fascia the fascia was quite thin and then placed the camera trocar right arm trocar left arm trocar and a second left arm trocar air seal port and a 5 mm suction port and then docked the robot placed patient was placed in steep Trendelenburg we released the colon from the lateral wall this allowed us to retract it from the deep pelvis, And then proceeded with the dissection posterior to the bladder dissected out the right vas deferens traced it all the way down to the insertion site to the prostate dissected out the right vas deferens and seminal vesicle dissected out the left vas deferens and seminal vesicle I then went posterior to the prostate stain above Denonvilliers' fascia hugging along the prostate freeing up the rectum off the prostate in the right and left nerve bundles off the bottom side of the prostate.We then pulled out of the pelvis we dropped the bladder created the space of Retzius put the bladder on traction Pelvic lymph node dissection was then done on both sidesThe pelvic lymph node dissection was then performed both side. Rhe right pelvic lymph nodes the nodes that were taken on the right side extended from the right iliac artery lateral pelvic sidewall up to the junction of the artery and the lymph nodes and down to the obturator nerve and then also below the motor coach tour operator nerve all the lymph nodes were removed during to remove those lymph nodes we used clips and electrocautery to control small blood vessels and also the control lymphatic. I then went to the left side and again did an extensive lymph node dissection starting of the left iliac artery extending the left iliac vein on the lateral sidewall down to the obturator nerve and the left side beyond the motor coach tour operator nerve down further behind it cleaning out all the lymphatic tissue all this tissue was sent off as a specimen we use clips and electrocautery during the dissection. At the end we cleaned out all the lymphatic tissue on the right pelvic wall and all the lymphatic tissue in the left pelvic wall. We then proceeded with the dissection of the prostate we incised the Denonvilliers' fascia on the right side traced it all the way up to the apex of the prostate dissected through the puboprostatic ligament the dorsal vein was identified and then went to the left side incised the puboprostatic ligament and Denonvilliers' fascia on the left side followed up anteriorly the dorsal vein complex was then identified we then suture-ligated dorsal vein complex using 2 oh V-Loc stitch after this was controlled then we pulled back between the junction of the bladder and the prostate , Dissected between the bladder and prostate electrocautery down to get to the catheter the catheter was then balloon was taken down pulled back to the prostate and then we dissected between the bladder and the prostate to release the seminal vesicles and vas deferens I then placed a traction on the prostate laterally to the right somewhat of a difficult case because a lot of added adipose tissue in the bladder was making visualization difficult I then put the prostate on traction of the right and the seminal vesicle and traction I then released the fascia over the prostate and then swept the neurovascular bundles off the prostate on the right side and then came back and then using the vessel sealer came to the pedicles of the prostate on the right side these were taken with the vessel sealer, After taking the pedicles with the vessel sealer then I was able to release the neurovascular bundle on the right side and it traced all the way up to the apex and was a perfect release on the right side then we went to the left side incised the fascia over the prostate and the left side started sweeping off the fascia laterally off the prostate anteriorly and then reached which should have been t he neurovascular bundles but as I tried to the release he is off the prostate these were extremely adherent almost fixed on the prostate I could not release the bundles off the looked like they were encased and involved so I decided not to force it I then came with the vessel sealer to the pedicle on the left side again I tried to release neurovascular and was [place] super stuck in the prostate I ended up having to take the neurovascular bundle with the prostate on the left side because the bundles were encased into the prostate look like they might be involved and could not be spared so then I traced inferiorly as a dissected inferiorly and of the prostate also the rectum was extremely adherent to the prostate on the left side underneath very difficult dissection and the need to get the rectum off the prostate extremely adherent, After is done doing is very meticulous dissection of the rectum off the prostate we then placed water in the pelvis and we did fill the rectum with air and we did not see any leak so there was no identified rectal injury, we took extra precaution to do this leak test because of the very difficult dissection of the left neurovascular bundle off the prostate off the rectum,I then transected through the dorsal vein complex there was no bleeding I transected through the urethra circumferentially dissected the prostate off the urethra very carefully to avoid any positive margins and then the prostate was put in Endo Catch bag we then we did a an anastomosis between the bladder neck and the prostate over catheter it was a running 3 oh strata fix stitch to armed running from the 6:00 to the 12:00 came together as a perfect anastomosis nice wide watertight seal put a new catheter in the bladder filled the bladder up with water there was no leakage and then we put the catheter drainage with 10 cc in the balloon. Then at this point the bladder flap was placed back over the prostate and then we undocked the robot extracted the prostate through the supraumbilical site closed the site with [id number] stitches the fascia through this area is very thin. And then we closed all the other sites with subcuticular stitches flushed out the catheter until I got all the clots out and was draining nicely patient was taken out of Trendelenburg anesthetic is currently being reversed blood loss about 240 cc was a longer case because of the very difficult dissection on the left side as a neurovascular bundle trying to spare the right bundle on the left side but was adhered to the prostate so I had to take the bundle in the left side. Surgeon: Angus Levin Type of Anesthesia: General Drains: mendez Estimated Blood Loss (mL): 240 Admit VTE Documentation VTE Present on Admission: No VTE Mechan Device Prophylaxis: SCD's VTE Pharm Prophylaxis ordered?: No
[2023-04-29] MEDS: Ketorolac 15 MG/ML Vial IV ×3 (12:31→23:33)
[2023-04-29] MEDS: Lactated Ringers 1,000 ML 125 ML IV ×2 (14:38→23:32)
[2023-04-29] MEDS: hydroCHLOROthiazide 12.5mg 12.5 MG PO (14:38)
[2023-04-29] MEDS: Ciprofloxacin 400 MG/200 ML BAG 200 MG IV (14:38)
[2023-04-29] MEDS: metFORMIN HCl 1,000 MG Tablet 1000 MG PO (19:32)
[2023-04-29] MEDS: Docusate Sodium 100 MG Capsule 200 MG PO (22:17)
[2023-04-29] MEDS: Gabapentin 300 MG Capsule PO (22:17)
[2023-04-29] MEDS: Pravastatin 20 MG Tablet PO (22:18)
[2023-04-29] MEDS: Multivitamins,Therapeutic Tablet 1 TABLET PO (22:18)
[2023-04-29] MEDS: Acetaminophen 325 MG Tablet PO (22:22)
[2023-04-30] VITALS (9 sets, daily range): BP systolic 102–145; BP diastolic 51–67; PULSE 77–108; RESP 16–18; TEMP 36.4–37.3; O2SAT 92–97
[2023-04-30] MEDS: Ciprofloxacin 400 MG/200 ML BAG 200 MG IV (02:10)
[2023-04-30] MEDS: Ketorolac 15 MG/ML Vial IV ×4 (06:06→23:03)
[2023-04-30] MEDS: Lactated Ringers 1,000 ML 125 ML IV ×3 (06:50→23:03)
[2023-04-30] MEDS: Docusate Sodium 100 MG Capsule 200 MG PO ×2 (09:46→21:27)
[2023-04-30] MEDS: metFORMIN HCl 1,000 MG Tablet 1000 MG PO ×2 (09:46→17:28)
[2023-04-30] MEDS: hydroCHLOROthiazide 12.5mg 12.5 MG PO (09:47)
[2023-04-30] MEDS: Empagliflozin 25 MG Tablet PO (09:47)
[2023-04-30] MEDS: Losartan Potassium 100 MG Tablet PO (09:47)
[2023-04-30] MEDS: Pantoprazole Sodium 20 MG Tablet PO (09:47)
[2023-04-30] MEDS: LINAGLIPTIN 5 MG TABLET PO (09:47)
[2023-04-30] MEDS: amLODIPine 10 MG Tablet PO (09:47)
--- NOTE | 2023-04-30 13:15 | NURSING ---
Ambulated in halls at this time.
[2023-04-30] MEDS: Gabapentin 300 MG Capsule PO (21:27)
[2023-04-30] MEDS: Pravastatin 20 MG Tablet PO (21:28)
[2023-04-30] MEDS: Multivitamins,Therapeutic Tablet 1 TABLET PO (21:29)
[2023-05-01 04:54] VITALS: BP 142/60; PULSE 103; RESP 16; TEMP 37.1; O2SAT 94
[2023-05-01 04:55] VITALS: O2SAT 89
[2023-05-01] MEDS: Ketorolac 15 MG/ML Vial IV (05:01)
[2023-05-01 08:14] VITALS: BP 135/76; PULSE 80; RESP 18; TEMP 36.7; O2SAT 93
[2023-05-01] MEDS: Docusate Sodium 100 MG Capsule 200 MG PO (08:16)
[2023-05-01] MEDS: Losartan Potassium 100 MG Tablet PO (08:17)
[2023-05-01] MEDS: metFORMIN HCl 1,000 MG Tablet 1000 MG PO (08:17)
[2023-05-01] MEDS: Pantoprazole Sodium 20 MG Tablet PO (08:17)
[2023-05-01] MEDS: hydroCHLOROthiazide 12.5mg 12.5 MG PO (08:18)
[2023-05-01] MEDS: amLODIPine 10 MG Tablet PO (08:18)
[2023-05-01] MEDS: LINAGLIPTIN 5 MG TABLET PO (08:18)
[2023-05-01] MEDS: Empagliflozin 25 MG Tablet PO (08:18)
--- NOTE | 2023-05-01 14:15 | CASEMGMT ---
RN CM: This RN CM met with pt at bedside. Pt awake/alert and answering questions appropriately. Pt states he is independent with ADLs and IADLs at baseline and denies any anticipated discharge needs at this time. Pt denies any concerns with mendez care at discharge. Pt's S.O. at bedside and will be available to assist pt as needed. Capo Shell RN [facility]
[2023-05-01 14:26] VITALS: BP 141/71; PULSE 94; RESP 18; TEMP 36.9; O2SAT 100
[2023-05-01] MEDS: Acetaminophen 325 MG Tablet PO (16:15)
--- NOTE | 2023-05-01 16:37 | PCM.PN.GU ---
Subjective Subjective Status post robotic prostatectomy abdomen was Distended yesterday so we will keep in the hospital for another day finally passed gas release gas had bowel movement today feeling much better he can go home today with a catheter we will make an inpatient bc of longer stay. Objective Data Objective Data Vital Signs: Vital Signs Temp Pulse Resp BP Pulse Ox O2 Del Method O2 Flow Rate 98.4 F 94 18 141/71 H 100 Room Air 2 05/01/23 14:26 05/01/23 14:26 05/01/23 14:26 05/01/23 14:26 05/01/23 14:26 05/01/23 14:26 05/01/23 04:54 Oxygen Flow Rate (L/min) 2 Oxygen Delivery Method Room Air Weight: 88.9 kg Body Mass Index (BMI) 29.7 Intake & Output: Intake and Output for Last 24 Hours 04/29/23 04/30/23 05/01/23 23:59 23:59 23:59 Intake Total 3610 / 3610 4828.83 / 4828.83 1800 / 1800 Output Total 1275 / 1275 2150 / 2150 2400 / 2400 Balance 2335 / 2335 2678.83 / 2678.83 -600 / -600 Lab / Micro Data 04/20/23 08:07 04/20/23 08:07
== END 2023-05-01 17:12 | disposition home or self-care (01) | DRG 708 ==
LOC: SDC 12:59 → MS3 04-30 08:34
PROVIDERS: Anesthesiology; Admitting Provider Urology; PCP Internal Medicine; Referring Provider Urology; Visit Provider Urology
PROC: 0VT04ZZ Resection of Prostate, Percutaneous Endoscopic Approach (ICD-10-PCS; CPT 55866; principal; 2023-04-29 07:10)
DX: C61 Malignant neoplasm of prostate (principal); E11.22 Type 2 diabetes mellitus with diabetic chronic kidney disease; N18.30 Chronic kidney disease, stage 3 unspecified; I12.9 Hypertensive chronic kidney disease with stage 1 through stage 4 chronic kidney disease, or unspecified chronic kidney disease; E78.00 Pure hypercholesterolemia, unspecified; F17.220 Nicotine dependence, chewing tobacco, uncomplicated; K21.9 Gastro-esophageal reflux disease without esophagitis; Z79.82 Long term (current) use of aspirin; Z79.84 Long term (current) use of oral hypoglycemic drugs; Z79.899 Other long term (current) drug therapy
CPT/HCPCS: 36415; 80048; 80076; 82962; 83036; 85027; 85610; 85730; 86850; 86900; 86901; 88307; 88309; 93005; 94668; J7120; J0744; J2405

== ENCOUNTER → 2023-06-23 | Outpatient (CLI) | payer OTHER, SELFPAY ==
[2023-06-23 10:23] LABS: PSA,Total- Diagnostic < 0.01 ng/mL (0.0-4.0)
== END | disposition home or self-care (01) ==
LOC: LAB 09:06
PROVIDERS: PCP Internal Medicine; Referring Provider Urology; Visit Provider Urology
DX: C61 Malignant neoplasm of prostate (principal)
CPT/HCPCS: 36415; 84153

== ENCOUNTER → 2023-09-19 | Outpatient (CLI) | payer OTHER, SELFPAY ==
[2023-09-19 10:36] LABS: PSA,Total- Diagnostic 0.02 ng/mL (0.0-4.0)
== END | disposition home or self-care (01) ==
LOC: LAB 09:58
PROVIDERS: PCP Internal Medicine; Referring Provider Urology; Visit Provider Urology
DX: C61 Malignant neoplasm of prostate (principal)
CPT/HCPCS: 36415; 84153

== ENCOUNTER 2024-01-11 09:23 | Day surgery (SDC) | payer OTHER, SELFPAY ==
[2024-01-11] VITALS (7 sets, daily range): BP systolic 96–139; BP diastolic 56–64; PULSE 16–66; RESP 16; TEMP 36.2–36.6; O2SAT 94–100; BMI 32.5
[2024-01-11] MEDS: Lactated Ringers 1,000 ML 15 ML IV (10:04)
--- NOTE | 2024-01-11 10:04 | PCM.PRE.AN2 ---
ASA Classification* ASA Classification ASA Classification: 2 Assessment & Plan Anesthesia* Anesthesia Assessment Anesthesia Assessment: Discussed sedation and/or anesthesia options, risks, benefits, and alternatives with patient/parents/legal guardian/POA. Questions invited. The patient/parents/legal guardian/POA seems to understand and agrees to proceed with anesthesia plan. Reviewed the physical assessment, medical history, allergy history and patient home medications list prior to surgery/procedure/anesthetic and documented any changes. Performed airway and anesthesia risk assessments. Anesthesia Type Anesthesia Type: MAC Anesthesia Focused Assessment* Airway Assessment Mouth opens: >3 cm Mallampati Score: II Focused Labs Anesthesia Preop lab: CBC WBC 6.8 K/mm3 (4.4-11.0) 04/20/23 08:07 RBC 5.23 M/mm3 (4.6-6.2) 04/20/23 08:07 Hgb 13.5 g/dL (13.0-16.5) 04/20/23 08:07 Hct 43.9 % (40-54) 04/20/23 08:07 Plt Count 329 K/mm3 (150-450) 04/20/23 08:07 CHEMISTRY Potassium 4.0 mmol/L (3.5-5.1) 04/20/23 08:07 Sodium 139 mmol/L (136-145) 04/20/23 08:07 BUN 19 mg/dL (7-18) H 04/20/23 08:07 Creatinine 1.66 mg/dL (0.70-1.30) H 04/20/23 08:07 Glucose 122 mg/dL (74-106) H 04/20/23 08:07 POC Glucose 117 mg/dL (74-106) H 04/29/23 06:31 TSH 1.22 uIU/mL (0.358-3.74) 04/14/22 08:31 COAG PT 13.0 SECONDS (11.7-14.9) 04/20/23 08:07 Pre-Assessment Diagnosis/Proposed Procedure Planned Operative Procedure(s): COLONOSCOPY Anesthesia History Anesthesia History - staff training and development manager: Anesthesia History - staff training and development manager Hx Hospitalization No 01/07/24 10:26 Any Problems With Anesthesia No 01/07/24 10:26 Cholinesterase deficiency No 01/07/24 10:26 You/Your Family Experience No 01/07/24 10:26 fever (hyperthermia) with Relationship Recent Exposure to Contagious No 04/29/23 06:35 Disease Does patient have nerve No 01/07/24 10:26 stimulator Patient instructed to have device shut off --Does patient have Pacemaker or ICD? When Was Last Pacemaker Check QUESTION #4 FULL TEXT: You/Your Family Experience fever (hyperthermia) with Anesthesia Last Oral Intake Last Oral intake: Last Oral Intake NPO since Meds taken in AM with sips of water? Meds patient instructed to take am of surgery PONV PONV - staff training and development manager: PONV - staff training and development manager Female No 01/07/24 10:26 HX of Motion Sickness No 01/07/24 10:26 HX of N/V After Surgery No 01/07/24 10:26 Non-Smoker Yes 01/07/24 10:26 Duration of Surgery greater No 01/07/24 10:26 than 60 minutes Number of Risk Factors 1 01/07/24 10:26 PONV Score Low Risk 01/07/24 10:26 Height & Weight Height & Weight: Anesthesia: Height & Weight Height 5 ft 8 in 12/04/23 10:49 Respiratory Assessment Respiratory Assessment - staff training and development manager: Respiratory Tract Infection Hx - staff training and development manager Hx Respiratory Tract Infection No 01/07/24 10:26 STOP Sleep Apnea STOP Sleep Apnea - staff training and development manager: STOP Sleep Apnea - staff training and development manager Hx Hypertension Yes: PER PT, CONTROLLED ON 01/07/24 10:26 MEDS Hx Sleep Apnea No 01/07/24 10:26 CPAP BIPAP Do you snore loudly (louder No 01/07/24 10:26 than talking or can be heard Do you often feel tired/ No 01/07/24 10:26 fatigued/ sleepy during daytime? Has anyone observed you stop No 01/07/24 10:26 breathing during sleep? STOP Results Negative 01/07/24 10:26 QUESTION #5 FULL TEXT : Do you snore loudly (louder than talking or can be heard through closed doors)? Tobacco Use History Tobacco Use History - staff training and development manager: Tobacco Use History - staff training and development manager Tobacco Use Smoking Status Current every day smoker 01/07/24 10:26 Hx Tobacco Use Yes 01/07/24 10:26 Years Smoking Packs Smoked per Day Smoking Cessation Date was within the last 15 years Hx Smoking Cessation Date Hx Smoking Cessation Counseling Hematologic Medial History Hematologic Hx - staff training and development manager: Hematologic Medical Hx - medical case manager Hx of Blood Transfusion No 01/07/24 10:26 Hx of Transfusion in last 3 No 01/07/24 10:26 Months Date of Last Transfusion (if within last 3 months) Ever experience any problems No 01/07/24 10:26 with transfusion(s)? Specify any problems Hx of Preganancy in last 3 N/A 01/07/24 10:26 Months Nurse Filling Out Transfusion VCHRISTIN 01/07/24 10:26 & Questions: Date: 01/07/24 01/07/24 10:26 Time: 10:01/07/24 10:26 Patient unable to answer at this time (ie. confused, unrespo /Reproduction History /Reproductive History - staff training and development manager: /Reproductive Hx- staff training and development manager Hx Now Gestational Age (in weeks): EDC: Hx Hx Para Hx Section SAB Active Medications Active Medications: Current Medications Generic Name Dose Route Start Last Admin Trade Name Freq PRN Reason Stop Dose Admin Lactated Ringer's 1,000 mls @ 15 mls/hr 01/11/24 09:30 IV .Q48H JOY PFSH Medical History Wears glasses Wears dentures Cancer History of renal disease Excessive bleeding Former smoker Chews tobacco History of edema Osteoarthritis of left knee Left knee pain Obesity Left breast mass Kidney disease, chronic, stage III (GFR 30-59 ml/min) Vision problem Neuropathy Arthritis GERD (gastroesophageal reflux disease) High cholesterol Hypertension Diabetes Home Medications ?Medication ?Instructions ?Recorded ?Last Taken ?Type aspirin 81 mg tablet,delayed 81 mg PO DAILY 01/19/23 01/03/24 History release (Adult Low Dose Aspirin) multivitamin 1 tab PO QHS 01/19/23 01/10/24 History metformin 1,000 mg tablet 1,000 mg PO BID #180 tabs 07/20/23 01/10/24 Rx amlodipine 10 mg tablet 10 mg PO DAILY #90 tabs 09/01/23 01/11/24 Rx hydrochlorothiazide 25 mg tablet 12.5 mg (1/2 x 25 mg) PO DAILY #90 09/01/23 01/10/24 Rx tabs losartan 100 mg tablet 100 mg PO DAILY #90 tabs 09/01/23 01/11/24 Rx pravastatin 20 mg tablet 20 mg PO QHS #90 tabs 09/01/23 01/10/24 Rx empagliflozin 25 mg tablet 25 mg PO DAILY #90 tabs 09/08/23 01/10/24 Rx (Jardiance) sitagliptin phosphate 100 mg tablet 100 mg PO DAILY #90 tabs 09/08/23 01/10/24 Rx omeprazole 20 mg capsule,delayed 20 mg PO DAILY #90 caps 10/01/23 01/10/24 Rx release cholecalciferol (vitamin D3) 50 50 mcg PO DAILY 01/07/24 Unknown History mcg (2,000 unit) capsule (Vitamin D3) cyanocobalamin (vitamin B-12) 50 50 mcg PO DAILY 01/07/24 01/10/24 History mcg tablet (Vitamin B-12) gabapentin 300 mg capsule 300 mg PO DAILY 01/07/24 01/10/24 History Allergy/AdvReac Type Severity Reaction Status Date / Time canagliflozin (From Invokana) Allergy Mild Other Verified 01/11/24 09:57 hyoscyamine Allergy Mild Other Verified 01/11/24 09:57 lisinopril Allergy Mild Other Verified 01/11/24 09:57 simvastatin Allergy Mild Other Verified 01/11/24 09:57 Penicillins (PCN) Allergy Unknown Verified 01/11/24 09:57 tetracycline Allergy Unknown Verified 01/11/24 09:57 Family History Sister Asthma Hypertension Tremor Mother Diabetes Parkinson disease Sister Diabetes Hypertension Father Heart disease Surgical History H/O prostatectomy History of tonsillectomy History of colonoscopy H/O breast biopsy Social History household members: spouse current occupational status: employed current occupation: railroad Smoking Status: Current every day smoker tobacco type: smokeless tobacco Smokeless tobacco user: chewing tobacco Electronic Cigarette Use: not used alcohol intake: never substance use type: does not use what type of physical activity do you participate in: none do you feel safe at home: Yes Review of Systems (Anesthesia) ROS Narrative System reviewed and no additional complaints, except as documented.
--- NOTE | 2024-01-11 10:23 | HP.PCM_ITS ---
[facility] - General General Date of Admission: 01/11/24 Date of Service: 01/11/24 Chief Complaint: Surveillance colonoscopy HPI Narrative BHARTI RAMOS, is a 63 M who presents today for surveillance colonoscopy. He had a colonoscopy approximately 5 years ago and he had 1 adenomatous polyp removed at that time. He is not having any bleeding, abdominal pain, cramping, nausea, vomiting or diarrhea. Overall he is in very good health. He does have past medical history of diabetes mellitus, osteoarthritis, CKD, hypercholesterolemia, diabetes, hypertension which are all controlled with medical therapy. [facility]LY [facility] Medical History Wears glasses Wears dentures Cancer History of renal disease Excessive bleeding Former smoker Chews tobacco History of edema Osteoarthritis of left knee Left knee pain Obesity Left breast mass Kidney disease, chronic, stage III (GFR 30-59 ml/min) Vision problem Neuropathy Arthritis GERD (gastroesophageal reflux disease) High cholesterol Hypertension Diabetes Home Medications ?Medication ?Instructions ?Recorded ?Last Taken ?Type aspirin 81 mg tablet,delayed 81 mg PO DAILY 01/19/23 01/03/24 History release (Adult Low Dose Aspirin) multivitamin 1 tab PO QHS 01/19/23 01/10/24 History metformin 1,000 mg tablet 1,000 mg PO BID #180 tabs 07/20/23 01/10/24 Rx amlodipine 10 mg tablet 10 mg PO DAILY #90 tabs 09/01/23 01/11/24 Rx hydrochlorothiazide 25 mg tablet 12.5 mg (1/2 x 25 mg) PO DAILY #90 09/01/23 01/10/24 Rx tabs losartan 100 mg tablet 100 mg PO DAILY #90 tabs 09/01/23 01/11/24 Rx pravastatin 20 mg tablet 20 mg PO QHS #90 tabs 09/01/23 01/10/24 Rx empagliflozin 25 mg tablet 25 mg PO DAILY #90 tabs 09/08/23 01/10/24 Rx (Jardiance) sitagliptin phosphate 100 mg tablet 100 mg PO DAILY #90 tabs 09/08/23 01/10/24 Rx omeprazole 20 mg capsule,delayed 20 mg PO DAILY #90 caps 10/01/23 01/10/24 Rx release cholecalciferol (vitamin D3) 50 50 mcg PO DAILY 01/07/24 Unknown History mcg (2,000 unit) capsule (Vitamin D3) cyanocobalamin (vitamin B-12) 50 50 mcg PO DAILY 01/07/24 01/10/24 History mcg tablet (Vitamin B-12) gabapentin 300 mg capsule 300 mg PO DAILY 01/07/24 01/10/24 History Allergy/AdvReac Type Severity Reaction Status Date / Time canagliflozin (From Invokana) Allergy Mild Other Verified 01/11/24 09:57 hyoscyamine Allergy Mild Other Verified 01/11/24 09:57 lisinopril Allergy Mild Other Verified 01/11/24 09:57 simvastatin Allergy Mild Other Verified 01/11/24 09:57 Penicillins (PCN) Allergy Unknown Verified 01/11/24 09:57 tetracycline Allergy Unknown Verified 01/11/24 09:57 Family History Sister Asthma Hypertension Tremor Mother Diabetes Parkinson disease Sister Diabetes Hypertension Father Heart disease Surgical History H/O prostatectomy History of tonsillectomy History of colonoscopy H/O breast biopsy Social History household members: spouse current occupational status: employed current occupation: [employer] Smoking Status: Current every day smoker tobacco type: smokeless tobacco Smokeless tobacco user: chewing tobacco Electronic Cigarette Use: not used alcohol intake: never substance use type: does not use what type of physical activity do you participate in: none do you feel safe at home: Yes ROS Review of Systems ROS Unobtainable: other Constitutional Constitutional: Denies fatigue, fever(s), poor appetite, weight gain or weight loss ENT HEENT: Denies mouth lesions Cardiovascular Cardiovascular: Denies abdominal bloating, abdominal edema or abdominal pain Respiratory/Chest Respiratory/Chest: Denies change in mental status, change in phlegm color, chest congestion or chest tightness Gastrointestinal Gastrointestinal: Denies belching, bloating, change in bowel habits, change in stool character, chewing difficulty, coffee ground emesis, constipation, crampi ng, diarrhea, dyspepsia, dysphagia, early satiety, excessive flatus, fecal incontinence, heartburn, hematemesis, hematochezia, hemorrhoids, loose stools, melena, nausea, odynophagia, rectal bleeding, tenesmus, vomiting or weight changes Genitourinary Genitourinary: Denies abdominal discomfort, burning urination or itching Musculoskeletal Musculoskeletal: Reports as per HPI; Denies muscle weakness or myalgias Integumentary Integumentary: Denies jaundice Neurologic Neurologic: Denies lack of coordination or weakness Psychiatric Psychiatric: Denies confusion, depression, memory loss, mood swings, paranoia or suicidal ideation Endocrine Endocrinology: Denies systems reviewed and no addt'l complaints, except as documented Hematologic/Lymphatic Hematologic/Lymphatic: Denies anemia, easy bleeding, easy bruising or lymphadenopathy Allergic/Immunologic Allergic/Immunologic: Denies systems reviewed and no addt'l complaints, except as documented Vital Signs Vital Signs Vital Signs: 01/11/24 10:01 01/11/24 10:01 Temperature 98 F Temperature Source Temporal Pulse Rate 65 Respiratory Rate 16 Respiratory Pattern Normal Blood Pressure 139/64 H Blood Pressure Mean 89 Blood Pressure Source Monitor Blood Pressure Position Supine Blood Pressure Location Left Arm Pulse Ox 97 Oxygen Delivery Method Room Air Weight Weight: 214 lb 4.629 oz Body Mass Index (BMI) 32.5 Physical Exam Const alert General Appearance: cooperative Orientation / Consciousness: oriented to person HEENT hearing grossly normal bilaterally Head and Scalp: normal to inspection Face and Sinus: face symmetric Nose: external nose normal Mouth: oral and palatal mucosa normal Eyes conjunctivae normal General Eye: normal appearance of both eyes Neck full ROM General: normal visual inspection Lymph Lymphatic: no lymphadenopathy noted Chest inspection of chest normal and palpation of chest normal Chest: symmetrical chest wall rise Resp normal respiratory effort Effort and Inspection: able to speak in complete sentences Cardio regular rate GI non-distended Percussion: normal to percussion Rectal Exam: deferred Neuro Speech: speech normal Gait (Neuro): normal gait Assessment & Plan Assessment/Plan (1) Encounter for screening for malignant neoplasm of colon: PLAN: He will undergo surveillance colonoscopy. He was explained alternatives, risk, benefits including not withstanding bleeding, infection, sepsis, perforation, need emergent urgent . He will have an ASA of 3.
[2024-01-11 10:26] LABS: Bedside Glucose 121 mg/dL (74-106)
--- NOTE | 2024-01-11 10:30 | COLBX_PTH ---
PATIENT: BHARTI RAMOS LOC: EN U#:[id number] AGE/SX: 63/M ROOM: RE01/11/[address]: Dr. Sonny Mcallister DO : 1960 BED: DIS: 01/11/2024 SPEC #: [id number] RECD: 01/11/24 12:27 STATUS: ANDREW YOEL #: [id number] ABIGAIL: 01/11/24 10:[address]: Sonny Mcallister DEPT: SURGICAL PATHOLOGY RECD BY: Gideon Mendoza ENTERED: 01/11/24 13:17 SP TYPE: COLON BX OTHR DR: Dr. Keturah Garvey MD Tissues: Ascending colon Procedures: Surgery Specimen Level IV HEADER OPERATION: Colonoscopy with polypectomy PRE-OP DIAGNOSIS: Screening TISSUE SUBMITTED: Ascending colon polypectomy MICROSCOPIC DIAGNOSIS Ascending colon, biopsy: Fragments of tubular adenoma. AM.mr 01/12/2024 MICROSCOPIC DESCRIPTION Slides are reviewed. GROSS DESCRIPTION Received in fixative is one container labeled with the patient's name and designated Ascending colon polyp. The specimen consists of multiple irregular fragments of light infante soft tissue that in aggregate measure 0.6 x 0.1 x 0.1 cm. The specimen is totally submitted in one cassette. 01/11/2024 TC:5 CPT:34382
--- NOTE | 2024-01-11 11:21 | OP.COLON_ITS ---
Patient Name: Zaki Mcduffie Procedure Date: 01/11/2024 10:58 AM Date of : 1960 Age: 63 Procedure: Colonoscopy Indications: Screening for colorectal malignant neoplasm Providers: Sonny Mcallister DO Medicines: Monitored Anesthesia Care Patient Profile: This is a 63 year old male. Refer to note in patient chart for documentation of history and physical. Last Colonoscopy: 10 years ago. Complications: No immediate complications. Procedure: Pre-Anesthesia Assessment: - Prior to the procedure, a History and Physical was performed, and patient medications and allergies were reviewed. The patient is competent. The risks and benefits of the procedure and the sedation options and risks were discussed with the patient. All questions were answered and informed consent was obtained. Patient identification and proposed procedure were verified by the physician in the pre-procedure area. Mental Status Examination: alert and oriented. Airway Examination: normal oropharyngeal airway and neck mobility. Respiratory Examination: clear to auscultation. CV Examination: normal. Prophylactic Antibiotics: The patient does not require prophylactic antibiotics. Prior Anticoagulants: The patient has taken no anticoagulant or antiplatelet agents. ASA Grade Assessment: II - A patient with mild systemic disease. After reviewing the risks and benefits, the patient was deemed in satisfactory condition to undergo the procedure. The anesthesia plan was to use monitored anesthesia care (MAC). Immediately prior to administration of medications, the patient was re-assessed for adequacy to receive sedatives. The heart rate, respiratory rate, oxygen saturations, blood pressure, adequacy of pulmonary ventilation, and response to care were monitored throughout the procedure. The physical status of the patient was re-assessed after the procedure. After I obtained informed consent, the scope was passed under direct vision. Throughout the procedure, the patient's blood pressure, pulse, and oxygen saturations were monitored continuously. The Colonoscope was introduced through the anus and advanced to the cecum, identified by appendiceal orifice and ileocecal valve. The colonoscopy was performed without difficulty. The patient tolerated the procedure well. The quality of the bowel preparation was adequate. The ileocecal valve, appendiceal orifice, and rectum were photographed. Scope In: 11:02:54 AM Scope Withdrawal Time 0 hours 7 minutes 39 seconds Scope Out: 11:16:41 AM Total Procedure Duration Time 0 hours 13 minutes 47 seconds Findings: The perianal and digital rectal examinations were normal. A 7 mm polyp was found in the ascending colon. The polyp was sessile. The polyp was removed with a cold snare. Resection and retrieval were complete. Verification of patient identification for the specimen was done. Estimated blood loss was minimal. A few small-mouthed diverticula were found in the recto-sigmoid colon and sigmoid colon. Impression: - One 7 mm polyp in the ascending colon, removed with a cold snare. Resected and retrieved. - Diverticulosis in the recto-sigmoid colon and in the sigmoid colon. Recommendation: - Discharge patient to home. - Resume previous diet. - Continue present medications. - Await pathology results. - Repeat colonoscopy in 5 years for surveillance. Procedure Code(s): --- Professional --- 39975, Colonoscopy, flexible; with removal of tumor(s), polyp(s), or other lesion(s) by snare technique CPT copyright 2021 [employer]. All rights reserved. The codes documented in this report are preliminary and upon in store demonstrator review may be revised to meet current compliance requirements. Sonny Mcallister DO 01/11/2024 11:20:49 AM This report has been signed electronically. Number of Addenda: 0 Note Initiated On: 01/11/2024 10:58 AM
--- NOTE | 2024-01-11 11:21 | OP.CCLET_ITS ---
01/11/2024 Keturah Garvey Md Re : Colonoscopy procedure for Zaki Mcduffie Dear Guru This procedure was performed on Thursday, January 11, 2024. My impressions and recommendations are as follows: Impressions : - One 7 mm polyp in the ascending colon, removed with a cold snare. Resected and retrieved. - Diverticulosis in the recto-sigmoid colon and in the sigmoid colon. Recommendations : - Discharge patient to home. - Resume previous diet. - Continue present medications. - Await pathology results. - Repeat colonoscopy in 5 years for surveillance. My findings are described in the full procedure note, which is enclosed. If I can be of further assistance, please feel free to contact me at . Sincerely, Sonny Mcallister, 01/11/2024 11:20:49 AM This report has been signed electronically.
--- NOTE | 2024-01-11 11:23 | PCM.POST.ANE ---
Anesthesia: Postop Eval I Current Vital Signs Temperature: 97.6 F Pulse Rate: 16 Blood Pressure: 100/63 Respiratory Rate: 16 Pulse Ox: 96 Oxygen Delivery Method: Room Air Assessment Airway patent: Yes Spontaneous unlabored respirations: Yes Mental status: Asleep nausea: No Vomiting: No Anesthesia Complication: No Fluid Hydration Crystalloid volume administer (ml): 500 Total IV fluid infused: 500 Progress Note Anesthesia document: Postop Eval 1 completed: Yes
--- NOTE | 2024-01-11 11:48 | PCM.POSTANE2 ---
Anesthesia Postop Eval I Sum Postop Eval Completion status Anesthesia document: Postop Eval 1 completed: Yes Anesthesia Postop Eval I Summary Anesthesia Postop Eval I Summary: Anesthesia Postop Eval I: Assessment Summary Airway patent Yes 01/11/24 11:24 [email or web address] Spontaneous unlabored Yes 01/11/24 11:24 [email or web address] respirations Mental status Asleep 01/11/24 11:24 [email or web address] nausea No 01/11/24 11:24 [email or web address] Vomiting No 01/11/24 11:24 [email or web address] Anesthesia Postop Eval I: Fluid Summary Crystalloid volume administer 500 01/11/24 11:24 [email or web address] (ml) Colloids volume administered ( ml) Blood Product volume administered (ml) Total IV fluid infused 500 01/11/24 11:24 [email or web address] Anesthesia Postop Eval I: Summary Notes Anesthesia Complication No 01/11/24 11:24 [email or web address] Anesthesia Complication Comment: Post-operative progress note Anesthesia: Postop Eval II Evaluation Mental status: Awake Pain Level: 0 nausea: No Vomiting: No
== END 2024-01-11 11:48 | disposition home or self-care (01) ==
LOC: EN 09:23 → AC 09:24
PROVIDERS: PCP Internal Medicine; Referring Provider Internal Medicine; Visit Provider Internal Medicine Gastroenterology
PROC: 0DJD8ZZ Inspection of Lower Intestinal Tract, Via Natural or Artificial Opening Endoscopic (ICD-10-PCS; CPT 45378; principal; 2024-01-11 10:25)
DX: Z12.11 Encounter for screening for malignant neoplasm of colon (principal); E11.22 Type 2 diabetes mellitus with diabetic chronic kidney disease; E11.40 Type 2 diabetes mellitus with diabetic neuropathy, unspecified; N18.30 Chronic kidney disease, stage 3 unspecified; D12.2 Benign neoplasm of ascending colon; K57.30 Diverticulosis of large intestine without perforation or abscess without bleeding; I12.9 Hypertensive chronic kidney disease with stage 1 through stage 4 chronic kidney disease, or unspecified chronic kidney disease; E78.00 Pure hypercholesterolemia, unspecified; F17.220 Nicotine dependence, chewing tobacco, uncomplicated; Z79.82 Long term (current) use of aspirin; Z79.84 Long term (current) use of oral hypoglycemic drugs; Z79.899 Other long term (current) drug therapy; Z85.46 Personal history of malignant neoplasm of prostate
CPT/HCPCS: 45385; 82962; 88305; J7120; J2405

== ENCOUNTER → 2024-01-19 | Outpatient (CLI) | payer OTHER, SELFPAY ==
[2024-01-19 12:10] LABS: Absolute Lymphocyte Count 1.17 X10^3/uL (0.83-4.51); Absolute Neutrophil Count 5.2 X10^3/uL (2.0-7.7); Basophil# 0.05 X10^3/uL; Basophil% 0.7 % (0-1); Eosinophil# 0.23 X10^3/uL; Eosinophils% 3.3 % (0-5); Hematocrit 41.9 % (40-54); Hemoglobin 12.7 g/dL (13.0-16.5); Lymphocyte # 1.17 X10^3/ul (0.83-4.51); Lymphocyte % 16.5 % (19-41); Mean Corp Hgb Conc 30.3 g/dL (32-36); Mean Corpuscular Hgb 24.7 pg (27.0-32.0); Mean Corpuscular Volume 81.4 fL (80-94); Mean Platelet Vol. 10.2 fl (6.2-12.0); Monocyte# 0.42 X10^3/uL; Monocyte% 5.9 % (0-10); NRBC Flagged by Analyzer 0 % (0-5); Neutrophil # 5.17 X10^3/uL (2.7-7.7); Neutrophil % 73.2 % (47-70); Platelet Count 334 K/mm3 (150-450); RBC Distribution Width CV 14.4 % (11.6-14.6); RBC Distribution Width SD 42.2 fl (35.1-43.9); Red Blood Count 5.15 M/mm3 (4.6-6.2); White Blood Count 7.1 K/mm3 (4.4-11.0)
[2024-01-19 13:06] LABS: ALB/GLOB Ratio 0.9 RATIO (0.9-2.4); AST(SGOT) 7 U/L (15-37); Alanine Aminotransfer ALT/SGPT 15 U/L (16-61); Albumin, Serum 3.5 g/dL (3.2-5.0); Alkaline Phosphatase 153 U/L (45-117); Anion Gap 7 (5-15); BUN 19 mg/dL (7-18); Calcium,Total 9.5 mg/dL (8.5-10.1); Chloride 106 mmol/L (98-107); Cholesterol 141 mg/dL (200); Creatinine, Serum 1.73 mg/dL (0.70-1.30); EST Glomerular Filtration Rate 42 mL/min (>60); Est Glom Filt Rate - Afr Amer 51 mL/min (>60); Globulin 3.7 g/dL (2.2-4.2); Glucose 121 mg/dL (74-106); High Density Lipoprotein 36 mg/dL; PSA,Total - Annual Screen < 0.01 ng/mL (0.00-4.00); Potassium 4.2 mmol/L (3.5-5.1); Protein, Total 7.2 g/dL (6.4-8.2); Sodium Level 139 mmol/L (136-145); Triglycerides 175 mg/dL; Very Low Density Lipoprotein 35 mg/dL (5-40)
== END | disposition home or self-care (01) ==
LOC: BIMLAB 09:50
PROVIDERS: PCP Internal Medicine; Visit Provider Nurse Practitioner
DX: I12.9 Hypertensive chronic kidney disease with stage 1 through stage 4 chronic kidney disease, or unspecified chronic kidney disease (principal); E11.22 Type 2 diabetes mellitus with diabetic chronic kidney disease; N18.31 Chronic kidney disease, stage 3a; Z85.46 Personal history of malignant neoplasm of prostate
CPT/HCPCS: 36415; 80053; 80061; 82043; 84153; 85025; G0103

== ENCOUNTER → 2024-02-02 | Outpatient (CLI) | payer OTHER, SELFPAY ==
--- NOTE | 2024-02-02 14:27 | STRESSREP ---
Stress Test Report Date: 02/02/2024 Procedure: Exercise tolerance test/imaging study Indications: Chest pain Consent: Per the patient Procedure: The patient exercised on a Aquilino protocol for 5 minutes and 30 seconds achieving a peak heart rate of 141 bpm (90% predicted maximal heart rate) with a peak blood pressure 182/68 mmHg and a peak MET capacity of 7 METs. The baseline ECG demonstrated normal sinus rhythm. The peak exercise ECG demonstrated no significant ischemic changes. EKG during recovery revealed no significant ischemic changes [There were no cardiac dysrhythmias pretest, during exercise, or recovery]. The functional capacity was considered normal for age. There was [no complaint of chest discomfort during exercise or recovery]. The examination was discontinued secondary to dyspnea. Impression: 1. Technically adequate (percent predicted maximal heart rate greater than 85%) exercise tolerance test 2. Stress test is negative for exercise-induced EKG changes of ischemia 3. The test test is negative for exercise-induced chest pain 4. Functional capacity is normal for age 5. Nuclear images pending Myocardial perfusion imaging study: Technique: The patient was injected with 13.9 mCi of technetium 99m Cardiolite and subsequently rest SPECT Cardiolite nuclear imaging was obtained in the horizontal long, vertical long, and short axis views. The patient exercised on a Aquilino protocol. Please see above for details. The patient was injected with 43.8 mCi of technetium 99m Cardiolite and subsequently stress SPECT Cardiolite nuclear imaging was obtained in the horizontal long, vertical long, and short axis views. A gated Cardiolite study at peak stress was obtained. Interpretation: Rest and stress SPECT Cardiolite nuclear imaging status post realignment, normalization, and attenuation correction, demonstrates no evidence of significant ischemia or infarction. The gated Cardiolite study demonstrates no significant regional wall motion abnormalities. The reported LVEF is 66%. Impression: 1. There is no evidence of significant ischemia or infarction. 2. The gated Cardiolite study reports an LVEF of 66%. This note was generated with [employer] software. It may contain incorrect words, spelling, and punctuation that were not noted in checking the note before signing.
== END | disposition home or self-care (01) ==
PROVIDERS: PCP Internal Medicine; Referring Provider Nurse Practitioner; Visit Provider Nurse Practitioner
DX: R07.9 Chest pain, unspecified (principal)
CPT/HCPCS: 78452; 93017; A9500; A4216

== ENCOUNTER → 2024-02-04 | Outpatient (CLI) | payer OTHER, SELFPAY ==
--- NOTE | 2024-02-04 07:15 | US_ITS ---
STUDY: ABDOMINAL ULTRASOUND - RIGHT UPPER QUADRANT REASON FOR VISIT: Male, 63 years old abnormal LFTs -- Attention LIVER TECHNIQUE: Ultrasound evaluation of the right upper quadrant was performed with real-time and static hopkins-scale imaging. TECHNICAL QUALITY: Adequate. COMPARISON: None. FINDINGS: Liver: The liver measures 14.9 cm. There is normal echogenicity of the liver. The bile ducts are within normal limits. There is hepatic color flow. The direction of portal flow is hepatopetal. There is no demonstrated mass lesion. Gallbladder: Normal distended gallbladder. The gallbladder wall measures 3 mm. There is a negative sonographic Bhat''s sign. There is no pericholecystic fluid. There are no gallstones. Common Bile Duct (C.B.D.): The common bile duct measures 4 mm. Pancreas: Obscured by overlying bowel gas. Right Kidney: Normal size of the right kidney. The right kidney measures 10.8 x 5.6 x 6.5 cm. Normal renal cortex. The right cortex measures 1.4 cm. There is no demonstrated renal mass or cyst. There is no right hydronephrosis. US/Abdomen Limited IMPRESSION: 1. Limited study due to overlying bowel gas obscuring the pancreas. 2. No acute abnormality in the right upper quadrant of the abdomen. Electronically Signed: Sajan Salcido MD at 16:03 EDT ,
== END | disposition home or self-care (01) ==
LOC: US 07:15
PROVIDERS: PCP Internal Medicine; Referring Provider Physician Assistant; Visit Provider Physician Assistant
DX: R74.8 Abnormal levels of other serum enzymes (principal)
CPT/HCPCS: 76705

== ENCOUNTER → 2024-03-19 | Outpatient (CLI) | payer OTHER, SELFPAY ==
[2024-03-19 11:05] LABS: PSA,Total- Diagnostic < 0.01 ng/mL (0.0-4.0)
== END | disposition home or self-care (01) ==
LOC: LAB 09:41
PROVIDERS: PCP Internal Medicine; Referring Provider Nurse Practitioner; Visit Provider Nurse Practitioner
DX: C61 Malignant neoplasm of prostate (principal)
CPT/HCPCS: 36415; 84153

== ENCOUNTER → 2024-07-19 | Outpatient (CLI) | payer OTHER, SELFPAY ==
[2024-07-19 12:44] LABS: Anion Gap 13 (5-15); BUN 20 mg/dL (4-19); BUN/Creat Ratio 12.2 RATIO (10-20); Calcium,Total 9.4 mg/dL (7.6-11.0); Carbon Dioxide 25.6 mmol/L (21.0-32.0); Chloride 103 mmol/L (98-108); Creatinine, Serum 1.62 mg/dL (0.70-1.20); EST Glomerular Filtration Rate 47 (>60); Glucose 115 mg/dL (70-99); Potassium 4.2 mmol/L (3.3-5.1); Sodium Level 142 mmol/L (133-145)
== END | disposition home or self-care (01) ==
LOC: BIMLAB 10:49
PROVIDERS: PCP Internal Medicine; Referring Provider Internal Medicine; Visit Provider Internal Medicine
DX: E11.22 Type 2 diabetes mellitus with diabetic chronic kidney disease (principal); N18.31 Chronic kidney disease, stage 3a
CPT/HCPCS: 36415; 80048

== ENCOUNTER → 2024-09-14 | Outpatient (CLI) | payer OTHER, SELFPAY ==
[2024-09-14 19:01] LABS: PSA,Total- Diagnostic < 0.02 ng/mL (0.00-4.00)
== END | disposition home or self-care (01) ==
LOC: LAB 17:43
PROVIDERS: PCP Internal Medicine; Referring Provider Nurse Practitioner; Visit Provider Nurse Practitioner
DX: C61 Malignant neoplasm of prostate (principal)
CPT/HCPCS: 36415; 84153

== ENCOUNTER → 2025-01-23 | Outpatient (CLI) | payer OTHER, SELFPAY ==
[2025-01-23 10:10] LABS: Hematocrit 39.3 % (40-54); Hemoglobin 12.7 g/dL (13.0-16.5); Immature Granulocytes Count 0.040 X10^3/uL (0.0-0.0); Mean Corp Hgb Conc 32.3 g/dL (32-36); Mean Corpuscular Volume 79.2 fL (80-94); Mean Platelet Vol. 9.9 fl (6.2-12.0); NRBC Flagged by Analyzer 0 % (0-5); Platelet Count 327 K/mm3 (150-450); RBC Distribution Width CV 14.3 % (11.6-14.6); RBC Distribution Width SD 40.6 fl (35.1-43.9); Red Blood Count 4.96 M/mm3 (4.6-6.2); White Blood Count 6.5 K/mm3 (4.4-11.0)
[2025-01-23 11:00] LABS: Creatinine, Urine (random) 146.00 mg/dL (39.00-259.00)
[2025-01-23 11:12] LABS: Microalbumin,Random Urine 650.0 mg/L (<20 mg/L)
[2025-01-23 11:26] LABS: AST(SGOT) 13 U/L (<=37); Alanine Aminotransfer ALT/SGPT 12 U/L (<=46); Albumin, Serum 4.0 g/dL (3.4-4.8); Alkaline Phosphatase 167 U/L (40-129); Anion Gap 14 (5-15); BUN 21 mg/dL (4-19); BUN/Creat Ratio 11.6 RATIO (10-20); Calcium,Total 9.3 mg/dL (7.6-11.0); Carbon Dioxide 22.2 mmol/L (21.0-32.0); Chloride 104 mmol/L (98-108); Cholesterol 153 mg/dL (<=200); Globulin 2.8 g/dL (2.2-4.2); Glucose 126 mg/dL (70-99); Low Density Lipoprotein Calc. 82 mg/dL; Potassium 4.3 mmol/L (3.3-5.1); Triglycerides 193 mg/dL; Very Low Density Lipoprotein 39 mg/dL (5-40); cholesterol:hdl ratio screen 4.75
[2025-01-23 11:55] LABS: Vitamin B12 3687 pg/mL (180-914); Vitamin D,25 Hydroxy 92.0 ng/mL (30-100)
== END | disposition home or self-care (01) ==
LOC: LAB 09:31
PROVIDERS: PCP Internal Medicine; Visit Provider Internal Medicine
DX: E11.22 Type 2 diabetes mellitus with diabetic chronic kidney disease (principal); N18.31 Chronic kidney disease, stage 3a; I12.9 Hypertensive chronic kidney disease with stage 1 through stage 4 chronic kidney disease, or unspecified chronic kidney disease; E56.9 Vitamin deficiency, unspecified
CPT/HCPCS: 36415; 80053; 80061; 82043; 82306; 82570; 82607; 85025

== ENCOUNTER → 2025-03-17 | Outpatient (CLI) | payer OTHER, SELFPAY ==
[2025-03-17 13:12] LABS: PSA,Total- Diagnostic < 0.02 ng/mL (0.00-4.00)
== END | disposition home or self-care (01) ==
PROVIDERS: PCP Internal Medicine; Visit Provider Urology
DX: C61 Malignant neoplasm of prostate (principal)
CPT/HCPCS: 36415; 84153